=== PATIENT | female | born 1950 | race Caucasian/White ===

== ENCOUNTER → 2018-02-25 | Outpatient (REF) | payer MEDICARE ==
[2018-02-25 12:05] LABS: BASO % 0.3 % (0.0-1.0); EOS # 0.3 10^3/uL (0.0-0.50); EOS % 3.1 % (0.0-3.0); HEMOGLOBIN 14.2 g/dl (12.0-15.5); IMMATURE GRANULOCYTE % 0.2 % (0-3.0); LYMPH # 3.2 10^3/uL (1.5-4.5); LYMPH % 36.8 % (24.0-44.0); MEAN CORPUSCULAR HEMOGLOBIN 30.5 pg (27.0-33.0); MEAN CORPUSCULAR VOLUME 92.5 fl (80.0-96.0); MONO # 0.7 10^3/uL (0.0-0.8); NEUTROPHILS # 4.5 10^3/uL (1.8-7.7); NEUTROPHILS % 51.6 % (36.0-66.0); PLATELET COUNT, AUTOMATED 260 10^3/uL (150-450); RED BLOOD COUNT 4.65 10^6/uL (4.00-5.40); RED CELL DISTRIBUTION WIDTH 13.6 % (11.5-14.5); WHITE BLOOD COUNT 8.7 10^3/uL (4.0-10.0)
[2018-02-25 12:44] LABS: ALBUMIN/GLOBULIN RATIO 1.33 (1.00-1.93); ALKALINE PHOSPHATASE 87 U/L (45-117); ALT/SGPT 20 U/L (12-78); ANION GAP 5 MEQ/L (8-16); AST/SGOT 22 U/L (7-37); BILIRUBIN,TOTAL 0.3 MG/DL (0.2-1.0); BLOOD UREA NITROGEN 28 MG/DL (7-18); CALCIUM LEVEL 8.7 MG/DL (8.8-10.2); CARBON DIOXIDE LEVEL 28 MEQ/L (21-32); CHLORIDE LEVEL 111 MEQ/L (98-107); CHOLESTEROL LEVEL 147 MG/DL (<200); CHOLESTEROL RISK RATIO 2.625 (<5); CREATININE FOR GFR 0.83 MG/DL (0.55-1.30); FREE T4 0.98 NG/DL (0.76-1.46); GLOMERULAR FILTRATION RATE > 60.0 (>45); GLUCOSE, FASTING 85 MG/DL (70-100); HDL CHOLESTEROL 56 MG/DL (>40); LDL CHOLESTEROL 80.2 MG/DL (<100); NON-HDL-C 91 MG/DL; POTASSIUM SERUM 4.7 MEQ/L (3.5-5.1); SODIUM LEVEL 144 MEQ/L (136-145); TRIGLYCERIDES LEVEL 54 MG/DL (<150)
== END ==
LOC: M SFHCPLAZ 08:41
DX: Z00.00 Encounter for general adult medical examination without abnormal findings (principal); E78.5 Hyperlipidemia, unspecified; F41.9 Anxiety disorder, unspecified
CPT/HCPCS: 84443

== ENCOUNTER 2018-11-20 15:07 | Emergency (ER) | payer OTHER, MEDICARE ==
[~2018-11-20] VITALS: Ht 157.5 cm; Wt 59.1 kg
[2018-11-20] MEDS ORDERED: ROBA500T PO (17:08)
[2018-11-20] MEDS ORDERED: NAPR-50 PO (17:08)
[2018-11-20 17:11] VITALS: BP 123/79
== END 2018-11-20 17:14 | disposition home or self-care (01) ==
LOC: M ED 15:07
DX: S13.4XXA Sprain of ligaments of cervical spine, initial encounter (principal); M62.830 Muscle spasm of back; M26.629 Arthralgia of temporomandibular joint, unspecified side; V43.52XA Car driver injured in collision with other type car in traffic accident, initial encounter; Y92.410 Unspecified street and highway as the place of occurrence of the external cause; Z91.030 Bee allergy status; Z79.1 Long term (current) use of non-steroidal anti-inflammatories (NSAID)

== ENCOUNTER 2018-12-23 08:01 | Emergency (ER) | payer OTHER, MEDICARE ==
[~2018-12-23] VITALS: Ht 160 cm; Wt 61.4 kg
[~2018-12-23 08:01] MED LIST: NAPR-50 PO; ROBA500T PO
[2018-12-23] MEDS ORDERED: ATOR1TAB21 (08:13)
[2018-12-23] MEDS ORDERED: ACETAMINOPHEN 325 MG TAB PO ONE (08:15)
--- NOTE | 2018-12-23 09:33 | REP ---
Thoracic spine radiographs: Three views: History: Trauma. No comparison study. Findings: There is anterior wedge compression fracture deformity at the T12 vertebral body with approximately 25-30% loss of anterior vertebral body heights. There is some discogenic spurring. No cortical irregularity or buckling is seen and this may be a chronic finding. Pedicles and posterior elements are intact. No paravertebral soft-tissue mass is seen. There are degenerative disc changes in the mid and lower thoracic and upper lumbar levels. Thoracic vertebral body heights are otherwise preserved. No other finding. Impression: 25-30% wedge compression fracture deformity at T12, radiographically appears old although there are no prior studies. Degenerative spondylosis changes. Otherwise negative. Electronically Signed by Jaxon Larkin MD 12/23/2018 09:36 A
--- NOTE | 2018-12-23 09:36 | REP ---
Lumbar spine series: Five views: History: Trauma. Findings: Lumbar vertebral body heights are preserved. Alignment is normal. There is moderate degenerative disc disease at L2-3 with lesser discogenic changes at L1-2 and L3-4. Some vascular calcifications noted. No fracture or collapse is seen in the lumbar spine. Mild chronic appearing wedging at T12 again noted. There is mild facet hypertrophy bilaterally at L5-S1. Impression: Degenerative spondylosis changes. No acute traumatic lumbar spine finding. Electronically Signed by Jaxon Larkin MD 12/23/2018 10:58 A
--- NOTE | 2018-12-23 09:37 | REP ---
RIGHT FOOT, FOUR VIEWS: FOOT: There is no evidence of an acute fracture, dislocation or intrinsic bone disease. IMPRESSION: No fracture or dislocation. Electronically Signed by Niko Diane MD 12/23/2018 08:32 P
--- NOTE | 2018-12-23 09:37 | REP ---
LEFT ANKLE, FOUR VIEWS: ANKLE: There is no evidence of an acute fracture, dislocation or intrinsic bone disease. The ankle mortise is anatomic. IMPRESSION: No fracture or dislocation. Electronically Signed by Niko Diane MD 12/23/2018 08:32 P
--- NOTE | 2018-12-23 09:37 | REP ---
Left foot series: Four views. History: Trauma. Findings: Four views of the left foot show overall normal mineralization. There is mild spurring at the first MTP joint. There is no evidence of fracture. Achilles calcaneal spurring is also noted. Impression: Mild first MTP and Achilles calcaneal spurring. Otherwise negative. Electronically Signed by Jaxon Larkin MD 12/23/2018 10:59 A
--- NOTE | 2018-12-23 10:18 | REP ---
CT thoracic spine without contrast: History: Trauma. T12 compression. CT findings: CT images confirm the presence of a mild wedge compression deformity at the T12 vertebral body. There is degenerative disc spurring anteriorly and posteriorly at T11-12. There is no cortical disruption or buckling to suggest that this is an acute injury. No para vertebral soft tissue edema is seen. There is diffuse osteopenia. Thoracic vertebral body heights are otherwise preserved. No other compression or fracture is seen. Impression: No acute fracture seen. Old mild wedge compression fracture deformity at T12. Electronically Signed by Jaxon Larkin MD 12/23/2018 11:00 A
[2018-12-23 10:54] VITALS: BP 117/68
== END 2018-12-23 11:01 | disposition home or self-care (01) ==
LOC: EDBD 08:01 → M ED 08:01
DX: S93.409A Sprain of unspecified ligament of unspecified ankle, initial encounter (principal); S20.229A Contusion of unspecified back wall of thorax, initial encounter; W50.0XXA Accidental hit or strike by another person, initial encounter; Y92.89 Other specified places as the place of occurrence of the external cause; E78.9 Disorder of lipoprotein metabolism, unspecified; F33.9 Major depressive disorder, recurrent, unspecified; F41.9 Anxiety disorder, unspecified; Z91.030 Bee allergy status; F17.210 Nicotine dependence, cigarettes, uncomplicated

== ENCOUNTER → 2019-08-12 | Outpatient (REF) | payer MEDICARE ==
[~2019-08-12] MED LIST changes: +ATOR1TAB21; -NAPR-50 PO; +NAPR-837 PO
[2019-08-12 11:07] LABS: HEMATOCRIT 45.1 % (36.0-47.0); HEMOGLOBIN 14.5 g/dl (12.0-15.5); MEAN CORPUSCULAR HEMOGLOBIN 30.7 pg (27.0-33.0); MEAN CORPUSCULAR HGB CONC 32.2 g/dl (32.0-36.5); MEAN CORPUSCULAR VOLUME 95.6 fl (80.0-96.0); PLATELET COUNT, AUTOMATED 261 10^3/uL (150-450); RED BLOOD COUNT 4.72 10^6/uL (4.00-5.40)
[2019-08-12 11:33] LABS: ALBUMIN 3.2 GM/DL (3.2-5.2); ALT/SGPT 21 U/L (12-78); BILIRUBIN,TOTAL 0.4 MG/DL (0.2-1.0); BLOOD UREA NITROGEN 26 MG/DL (7-18); CALCIUM LEVEL 8.4 MG/DL (8.8-10.2); CARBON DIOXIDE LEVEL 28 MEQ/L (21-32); CHLORIDE LEVEL 110 MEQ/L (98-107); CHOLESTEROL LEVEL 129 MG/DL (<200); GLOMERULAR FILTRATION RATE > 60.0 (>39); GLUCOSE, FASTING 93 MG/DL (70-100); HDL CHOLESTEROL 43 MG/DL (>40); LDL CHOLESTEROL 68 MG/DL (<100); NON-HDL-C 86 MG/DL; POTASSIUM SERUM 4.5 MEQ/L (3.5-5.1); SODIUM LEVEL 142 MEQ/L (136-145); THYROID STIMULATING HORMONE 0.699 uIU/ML (0.358-3.740); TOTAL PROTEIN 6.3 GM/DL (6.4-8.2); TRIGLYCERIDES LEVEL 91 MG/DL (<150)
== END ==
LOC: M SFHCPLAZ 08:29
PROVIDERS: ATTEND Nurse Practitioner Family
DX: F32.9 Major depressive disorder, single episode, unspecified (principal); E78.5 Hyperlipidemia, unspecified

== ENCOUNTER → 2019-10-05 | Outpatient (CLI) | payer MEDICARE ==
--- NOTE | 2019-10-05 14:04 | REP ---
REASON FOR EXAM: Upper respiratory tract infection. There are no priors for comparison. There is a patchy opacity in the right middle lobe with slight right CP angle blunting. The heart is not enlarged and the osseous structures are within normal limits. IMPRESSION: Right middle lobe pneumonia and a small right pleural effusion. Electronically Signed by Heriberto Stevenson DO 10/05/2019 03:27 P
== END ==
LOC: M WUC 13:27
PROVIDERS: ATTEND Nurse Practitioner Family
DX: J18.9 Pneumonia, unspecified organism (principal)

== ENCOUNTER → 2019-11-19 | Outpatient (CLI) | payer MEDICARE ==
--- NOTE | 2019-11-19 15:15 | REP ---
CHEST, TWO VIEWS: Two views of the chest are performed and compared to prior study of 10/05/2019. There is an area of persistent consolidative opacity in the right middle lobe as seen on prior study, unchanged. No infiltrate is seen in the left lung. Heart is not enlarged. Mediastinal silhouette is unchanged. There is some tortuosity of the thoracic aorta. There are degenerative changes of the spine. IMPRESSION: Persistent consolidative opacity in the right middle lobe. Recommend CT of the chest with IV contrast to rule out underlying neoplasm. Electronically Signed by Niko Diane MD 11/19/2019 03:41 P
== END ==
LOC: M WUC 13:55
PROVIDERS: ATTEND Nurse Practitioner Family
DX: J18.9 Pneumonia, unspecified organism (principal)

== ENCOUNTER → 2019-11-24 | Outpatient (REF) | payer MEDICARE ==
[2019-11-24 17:48] LABS: BLOOD UREA NITROGEN 12 MG/DL (7-18); CALCIUM LEVEL 8.7 MG/DL (8.8-10.2); CARBON DIOXIDE LEVEL 31 MEQ/L (21-32); CHLORIDE LEVEL 111 MEQ/L (98-107); CREATININE FOR GFR 0.78 MG/DL (0.55-1.30); GLOMERULAR FILTRATION RATE > 60.0 (>39); GLUCOSE, FASTING 102 MG/DL (70-100); SODIUM LEVEL 145 MEQ/L (136-145)
== END ==
LOC: M SFHCPLAZ 15:50
PROVIDERS: ATTEND Nurse Practitioner Family
DX: R93.89 Abnormal findings on diagnostic imaging of other specified body structures (principal); Z13.21 Encounter for screening for nutritional disorder; Z79.899 Other long term (current) drug therapy

== ENCOUNTER → 2020-01-29 | Outpatient (CLI) | payer MEDICARE | LOC: M LABSMTC 12:12 | PROVIDERS: ATTEND Family Medicine | DX: Z11.59 Encounter for screening for other viral diseases (principal); Z20.828 Contact with and (suspected) exposure to other viral communicable diseases ==

== ENCOUNTER 2020-07-06 10:10 | Inpatient (IN) | payer MEDICARE ==
[~2020-07-06] VITALS: Ht 152.4 cm; Wt 51.7 kg
[2020-07-06] MEDS: MOM 30ML SUSPENSION UDC PO SCH (09:00)
[~2020-07-06 10:10] MED LIST changes: -ATOR1TAB21; +ATOR1TAB21 PO
[2020-07-06] MEDS ORDERED: ANOR1AER INH (10:28)
[2020-07-06] MEDS ORDERED: VITA50005 PO (10:28)
[2020-07-06] MEDS ORDERED: ATIV1TAB7 PO (10:28)
[2020-07-06] MEDS ORDERED: AMIT10TA PO (10:28)
[2020-07-06 11:11] LABS: HEMATOCRIT 37.5 % (36.0-47.0); HEMOGLOBIN 11.7 g/dl (12.0-15.5); MEAN CORPUSCULAR HGB CONC 31.2 g/dl (32.0-36.5); MEAN CORPUSCULAR VOLUME 89.7 fl (80.0-96.0); PLATELET COUNT, AUTOMATED 256 10^3/uL (150-450); RED BLOOD COUNT 4.18 10^6/uL (4.00-5.40); WHITE BLOOD COUNT 7.5 10^3/uL (4.0-10.0)
--- NOTE | 2020-07-06 11:16 | REPVR ---
PROCEDURE INFORMATION: Exam: XR Chest, 1 View Exam date and time: 07/06/2020 11:00 AM Age: 69 years old Clinical indication: Cough; Patient HX: HX of smoking, HX of pneumonia since aug 2019; Additional info: Malaise TECHNIQUE: Imaging protocol: XR of the chest Views: 1 view. COMPARISON: CR CHEST 2 VIEW 11/19/2019 2:06 PM FINDINGS: Lungs: The right lung is largely opacified, with atelectasis and potential underlying airspace disease and/or parenchymal pathology. The left lung is relatively clear. Pleural space: There is a large new right pleural effusion. The left costophrenic angle is sharp. No pneumothorax is identified. Heart/Mediastinum: Unremarkable. No cardiomegaly. Vasculature: The aorta is again tortuous. Bones/joints: Unremarkable. IMPRESSION: Large right pleural effusion, new since 11/19/19, with the right lung largely opacified, with atelectasis and potential underlying airspace disease and/or parenchymal pathology. Recommend close follow-up and/or CT. Electronically signed by: Cecil Galvan On 07/06/2020 11:16:09 AM
[2020-07-06 11:51] LABS: IONIZED CALCIUM 4.4 MG/DL (4.5-5.3)
[2020-07-06 11:53] LABS: ALBUMIN 2.5 GM/DL (3.2-5.2); ALT/SGPT 28 U/L (12-78); BILIRUBIN,DIRECT 0.6 MG/DL (0.0-0.2); BILIRUBIN,TOTAL 1.1 MG/DL (0.2-1.0); CK-MB VALUE MASS 2.5 NG/ML (<3.6); CPK CREATINE PHOSPHOKINASE 74 U/L (26-192); LIPASE 2166 U/L (73-393); MB/CK RELATIVE INDEX 3.38 (< OR =4); TOTAL PROTEIN 6.2 GM/DL (6.4-8.2); TROPONIN I < 0.02 NG/ML (< 0.10)
[2020-07-06 12:32] LABS: ATYPICAL LYMPH 9 % (0-5); LYMPHOCYTES 13 % (16-44); METAMYELOCYTES 1 % (0-0); MONOCYTES 1 % (0-5); MYELOCYTES 3 % (0-0); NEUTROPHILS 66 % (28-66); PLATELET ESTIMATE NORMAL (NORMAL)
[2020-07-06] MEDS ORDERED: ISOVUE-370 76% 100ML VIAL As Ordered ONE ×2 (12:32→12:40)
--- NOTE | 2020-07-06 13:37 | REPVR ---
PROCEDURE INFORMATION: Exam: CT Abdomen And Pelvis With Contrast Exam date and time: 07/06/2020 12:23 PM Age: 69 years old Clinical indication: Abdominal pain; Additional info: Pancreatitis/effusion/possible malignancy TECHNIQUE: Imaging protocol: Computed tomography of the abdomen and pelvis with intravenous contrast. Radiation optimization: All CT scans at this facility use at least one of these dose optimization techniques: automated exposure control; mA and/or kV adjustment per patient size (includes targeted exams where dose is matched to clinical indication); or iterative reconstruction. Contrast material: ISOVUE 370; Contrast volume: 100 ml; Contrast route: INTRAVENOUS (IV); COMPARISON: No relevant prior studies available. FINDINGS: Liver: There are multiple heterogeneous masses in the liver measuring up to 6.2 cm on the left and 5.7 cm on the right, most compatible with metastases. Gallbladder and bile ducts: No gallstones are evident, but ultrasound would be more sensitive. Pancreas: The pancreas appears to contain a somewhat ill-defined hypodense mass in the head measuring 2.2 x 2.4 x 1.3 cm. There is also heterogeneity of the pancreas more distally which could relate to additional masses or irregular dilatation of the pancreatic duct. Spleen: Normal. No splenomegaly. Small splenule noted. Adrenals: There is nodular and masslike thickening of the adrenal glands. Kidneys and ureters: Multiple bilateral renal cysts are present. There also indeterminate density lesions exophytic to the right kidney, measuring up to 2.8 cm in the upper pole and 1.4 cm in the lower pole. Some lobulated fluid partially surrounds the left kidney, measuring up to 13 mm in thickness, sparing the upper pole. Stomach and bowel: The unopacified small bowel is not significantly distended to suggest obstruction. There appears to be mild wall thickening of some distal small bowel loops. There appears to be mild wall thickening of portions of the transverse, descending and sigmoid colon, including apparent masslike wall thickening at the level of the splenic flexure. Appendix: The appendix is not identified, but there are no inflammatory changes in its expected region. Intraperitoneal space: There is no free air. Small free fluid is present about the abdomen and pelvis. There also multiple small soft tissue nodules along the peritoneum, particularly in the left upper quadrant, measuring up to 2.9 cm. Vasculature: The abdominal aorta is nonaneurysmal. Atherosclerotic vascular calcifications are noted. Lymph nodes: There are enlarged left periaortic, aortocaval and yessica hepatis lymph nodes, with short axis measurements of up to 1.5 cm, 1.4 cm and 1.1 cm, respectively. Bladder: Grossly unremarkable. Reproductive: There has been hysterectomy. No gross adnexal abnormality is apparent, but ultrasound would be more appropriate in this regard. Bones/joints: Degenerative changes involve the spine and hips. There is heterogeneous sclerosis involving the visualized skeleton, compatible with metastatic disease. Moderate compression of the T12 vertebral body is of indeterminate age. Soft tissues: See "Intraperitoneal space" finding. IMPRESSION: 1. Multiple hepatic masses measuring up to 6.2 cm, most compatible with metastases. 2. Appearance of an ill-defined hypodense mass in the pancreatic head measuring up to 2.4 cm, suspicious for neoplasm. This could be better characterized with MRI, as could heterogeneity of the pancreas more distally, which could relate to additional masses or irregular dilatation of the pancreatic duct. 3. Nodular masslike thickening of the adrenal glands, suggesting metastatic disease. 4. Indeterminate right renal lesions measuring up to 2.8 cm, with malignancy not excluded. These would also be better evaluated with MRI. 5. Lobulated fluid partially surrounding the left kidney, could relate to prior trauma or infection. 6. Apparent masslike wall thickening of the large bowel at the level of the splenic flexure, could be a site of neoplasm as well. 7. Apparent mild wall thickening of some distal small bowel loops and portions of the transverse, descending and sigmoid colon elsewhere, suggesting a nonspecific enterocolitis. 8. Small free fluid about the abdomen and pelvis, with multiple small soft tissue nodules along the peritoneum, suspicious for carcinomatosis. 9. Lymphadenopathy as described. 10. Heterogeneous sclerosis involving the visualized skeleton, compatible with metastatic disease. 11. Moderate, age-indeterminate compression of the T12 vertebral body. COMMENTS: Dedicated chest CT has been performed, and findings above the diaphragm will be reported separately. Electronically signed by: Cecil Galvan On 07/06/2020 13:37:33 PM
--- NOTE | 2020-07-06 13:42 | REPVR ---
PROCEDURE INFORMATION: Exam: CT Angiography Chest With Contrast Exam date and time: 07/06/2020 12:28 PM Age: 69 years old Clinical indication: Chest pain; Additional info: Pancreatitis/effusion/possible malignancy/pe TECHNIQUE: Imaging protocol: Computed tomographic angiography of the chest with intravenous contrast. 3D rendering (Not supervised by radiologist): MIP and/or 3D reconstructed images were created by the technologist. Radiation optimization: All CT scans at this facility use at least one of these dose optimization techniques: automated exposure control; mA and/or kV adjustment per patient size (includes targeted exams where dose is matched to clinical indication); or iterative reconstruction. Contrast material: ISOVUE 370; Contrast volume: 100 ml; Contrast route: INTRAVENOUS (IV); COMPARISON: CR PORTABLE CHEST X-RAY 07/06/2020 10:52 AM FINDINGS: Pulmonary arteries: No pulmonary embolus is identified. Aorta: The thoracic aorta is nonaneurysmal. Lungs: The lungs demonstrate mild centrilobular emphysematous disease. The left demonstrates mild dependent atelectasis. There is a 6 mm pleural based nodule in the left lower lobe (image [id number]). The right lung is largely collapsed and consolidated, with some aeration of the right upper lobe, but complete opacification of the right middle and lower lobes. Pleural space: There are large right and very small left pleural effusions. No pneumothorax. Heart: Unremarkable. No cardiomegaly. No pericardial effusion. Lymph nodes: There is confluent soft tissue density in the mediastinum, including in the pretracheal and subcarinal regions, extending into the bilateral silverio, could represent confluent lymphadenopathy. This narrows the pulmonary arteries and obliterates the lumen of the pulmonary veins in the right hilum. The right mainstem bronchus is occluded with some soft tissue density within it. Bones/joints: Heterogeneous sclerosis involves the visualized skeleton, compatible with metastatic disease. Soft tissues: See "Lymph nodes" finding. IMPRESSION: 1. Large right and very small left pleural effusions. 2. Confluent soft tissue density in the mediastinum extending into the bilateral hilar with the right mainstem bronchus occluded and containing soft tissue density. This could represent primary or metastatic disease. 3. Right lung largely collapsed and consolidated with some aeration of the upper lobe and complete opacification of the middle and lower lobes. 4. 6 mm left lower lobe nodule nodule. Fleischner follow up recommendations for incidental nodules are not indicated. Follow up per patient's medical condition. 5. Diffuse osseous metastatic disease. COMMENTS: 1. See separate abdominal CT report for findings below the diaphragm. 2. THIS REPORT CONTAINS FINDINGS THAT MAY BE CRITICAL TO PATIENT CARE. The findings were verbally communicated via telephone conference with MADDIE Avalos at 1:39 PM EDT on 07/06/2020. The findings were acknowledged and understood. Electronically signed by: Cecil Galvan On 07/06/2020 13:41:37 PM
[2020-07-06] MEDS ORDERED: KCL 20MEQ IN D5/NS 1000ML 1,000 ML IV SCH (14:06)
[2020-07-06] MEDS ORDERED: LEVALBUTEROL 1.25 MG/0.5 ML CONCENTRATE NEB NEB PRN (14:15)
[2020-07-06] MEDS ORDERED: BISACODYL 10 MG SUPP PR PRN (14:15)
[2020-07-06] MEDS ORDERED: ACETAMINOPHEN TAB 650MG DOSE (2X325MG) PO PRN (14:15)
[2020-07-06] MEDS ORDERED: flumazeniL 0.5 MG/5 ML VIAL As Ordered ONE (14:31)
[2020-07-06] MEDS ORDERED: MIDAZOLAM INJ 2MG/2ML VIAL (J2250 PER 1MG) As Ordered ONE ×2 (14:31→14:32)
[2020-07-06] MEDS ORDERED: LIDOCAINE 1% MDV 20ML VIAL As Ordered ONE (14:32)
--- NOTE | 2020-07-06 14:51 | HPEPDOC ---
[facility] Medical History & Physical Date of Admission Jul 06, 2020 Date of Service: Jul 06, 2020 History and Physical CHIEF COMPLAINT: shortness of breath, gait dysfunction HISTORY OF PRESENT ILLNESS: 69 yo female for shortness of breath, difficulty with gait, weakness and malaise. Also noted 40 pound unintentional weight loss. Time frame not clear for her symptoms. Patient is a poor historian. Found to have large right pleural effusion. States she is 'very healthy' otherwise. Acknowledges her PCP, but states she does not follow regularly. She expresses concerns for her dogs, and is hoping to be discharged soon. Denies chest pain, abdominal pain, N/V/D, headaches. PAST MEDICAL HISTORY: #HLD #anxiety/depression #basal cell carcinoma #pancreatic mass ALLERGIES: Please see below. REVIEW OF SYSTEMS: Negative except as per HPI. HOME MEDICATIONS: Please see below. PHYSICAL EXAMINATION: VITAL SIGNS: See below GENERAL APPEARANCE: NAD, elderly, cachectic, frail HEENT: NC/AT CARDIOVASCULAR: +S1S2, RRR Lungs: diminished breath sounds ABDOMEN: soft, NT, +BS EXTREMITIES: no edema PSYCHIATRIC: alert, awake, oriented to person LABORATORY DATA: See below. MICROBIOLOGY: Please see below. A/P: 69 yo female with PMHx as indicated, admitted for large right pleural effusion, concern for malignancy. #right pleural effusion - d/w dr whiting - plan for chest tube - assistance appreciated #AMS - baseline dementia #pancreatic mass as per CT - consider MRCP #HLD #anxiety/depression #DVT prophylaxis Dispo: poor prognosis given widely metastatic disease, chest tube for drainage of pleural effusion, possible rad/onc for RT. Vital Signs Vital Signs Date Time Temp Pulse Resp B/P (MAP) Pulse Ox O2 Delivery O2 Flow Rate FiO2 07/06/20 14:36 98.4 108 20 137/60 (85) 93 Room Air Laboratory Data Labs 24H Laboratory Tests 2 07/06/20 10:39: Immature Granulocyte % (Auto) , Neutrophils (%) (Auto) , Nucleated Red Blood Cells % (auto) 6.1H, Neutrophils 66, Band Neutrophils 7, Lymphocytes (Manual) 13L, Monocytes (Manual) 1, Metamyelocytes 1H, Myelocytes 3H, Atypical Lymphocytes 9H, Platelet Estimate NORMAL, Lactic Acid Level 3.3*H, Total Bilirubin 1.1H, Direct Bilirubin 0.6H, Aspartate Amino Transf (AST/SGOT) 56H, Alanine Aminotransferase (ALT/SGPT) 28, Alkaline Phosphatase 220H, Total Creatine Kinase 74, Creatine Kinase MB 2.5, Creatine Kinase MB Relative Index 3.38, Troponin I < 0.02, Total Protein 6.2L, Albumin 2.5L, Albumin/Globulin Ratio 0.7L, Lipase 2166H, Thyroid Stimulating Hormone (TSH) 1.790 07/06/20 10:46: POC Glucose (Misc Panel) 125H, POC Sodium (Misc Panel) 143, POC Potassium (Misc Panel) 3.8, POC Chloride (Misc Panel) 102, POC Total CO2 (Misc Panel) 26.0, POC Blood Urea Nitrogen (Misc Panel 37H, POC Ionized Calcium (Misc Panel) 4.4L, POC Creatinine (Misc Panel) 0.8, POC Hematocrit (Misc Panel) 37.0L 07/06/20 11:06: Osmolality 312H, Whole Blood Ionized Calcium 4.4L CBC/BMP Laboratory Tests 07/06/20 10:39 Microbiology Microbiology 07/06/20 Blood Culture, Received Pending 07/06/20 Blood Culture, Received Pending Home Medications Scheduled Amitriptyline HCl (Amitriptyline HCl) 10 Mg Tablet, 10 MG PO QHS RECEIVES FROM [facility] PER PT, CAN'T VERIFY Atorvastatin Calcium (Atorvastatin Calcium) 20 Mg Tab, 20 MG PO DAILY Ergocalciferol (Vitamin D2) (Vitamin D2) 50,000 Units Cap, 50,000 UNITS PO QWEEK Umeclidinium Brm/Vilanterol Tr (Anoro Ellipta 62.5-25 Mcg INH) 1 Each Blst.w.dev, 1 PUFF INH DAILY Scheduled PRN Lorazepam (Ativan) 1 Mg Tablet, 1 MG PO QID PRN for ANXIETY RECEIVES FROM [facility] PER PT, CAN'T VERIFY Allergies Coded Allergies: bee venom protein (honey bee) (Verified Allergy, Intermediate, HIVES, 07/06/20) A-FIB/CHADSVASC A-FIB History Current/History of A-Fib/PAF?: No JARED BLEVINS MD Jul 06, 2020 14:51
[2020-07-06] MEDS ORDERED: MIDAZOLAM INJ 2MG/2ML VIAL (J2250 PER 1MG) IV ONE ×2 (15:20→15:28)
[2020-07-06 15:26] LABS: ABG BASE EXCESS 1.4 (-2.0-2.0); ABG HCO3 26.2 MEQ/L (22.0-26.0); ABG PARTIAL PRESSURE O2 109.7 mmHg (75.0-100.0); ABG STANDARD HCO3 25.8 MEQ/L (22.0-26.0); ABG TOTAL CO2 27.5 MEQ/L (23.0-31.0); ABG pH (ARTERIAL) 7.413 UNITS (7.350-7.450)
[2020-07-06] MEDS ORDERED: LIDOCAINE 1% MDV 20ML VIAL SC ONE (15:26)
[2020-07-06 16:00] VITALS: BP 138/85
--- NOTE | 2020-07-06 16:07 | REPVR ---
PROCEDURE INFORMATION: Exam: XR Chest, 1 View Exam date and time: 07/06/2020 3:35 PM Age: 69 years old Clinical indication: Condition or disease; Other: Chest tube insertion TECHNIQUE: Imaging protocol: XR of the chest Views: 1 view. COMPARISON: CR PORTABLE CHEST X-RAY 07/06/2020 10:52 AM FINDINGS: Lungs: Progressive volume loss and airspace disease in the right lung. COPD and interstitial prominence. Pleural space: Interval insertion of right thoracostomy tube with improved right pleural effusion and trace pneumothorax. Heart/Mediastinum: No cardiomegaly. Bones/joints: Osteopenia and degenerative change. Soft tissues: Subcutaneous emphysema in the right chest wall. IMPRESSION: 1. Progressive volume loss and airspace disease in the right lung. 2. Interval insertion of right thoracostomy tube with improved right pleural effusion and trace pneumothorax. Electronically signed by: Freddy Franco On 07/06/2020 16:06:44 PM
[2020-07-06] MEDS: KETOROLAC 30 MG/ML 1ML VIAL IV SCH ×2 (16:11→22:38)
[2020-07-06 18:22] LABS: PREALBUMIN 13.4 MG/DL (20.0-40.0)
[2020-07-06 20:00] VITALS: BP 132/72
[2020-07-06] MEDS: PERCOCET 5MG/325MG TAB PO PRN (20:14)
[2020-07-06] MEDS: DOCUSATE SODIUM 100 MG CAP PO SCH (20:15)
[2020-07-06] MEDS: HEPARIN SOD (PORCINE) 5000UNITS/ML 1ML VIAL/SYRINGE SC SCH (20:15)
[2020-07-06] MEDS: LEVALBUTEROL 1.25 MG/0.5 ML CONCENTRATE NEB NEB SCH (20:17)
[2020-07-06 21:58] LABS: PH BODY FLUID 7.642 UNITS (NOT ESTABLISHED); SOURCE, BODY FLUID pH PLEURAL
[2020-07-06 22:20] LABS: AMYLASE, BODY FLUID 195 U/L (NOT ESTABLISHED); CHOLESTEROL, BODY FLUID < 50 MG/DL (NOT ESTABLISHED); LDH, BODY FLUID 759 U/L (NOT ESTABLISHED); SOURCE, BODY FLUID AMYLASE PLEURAL; SOURCE, BODY FLUID CHOL PLEURAL; SOURCE, BODY FLUID GLUCOSE PLEURAL; SOURCE, BODY FLUID LDH PLEURAL; SOURCE, BODY FLUID TRIG PLEURAL; TRIGLYCERIDE, BODY FLUID 29 MG/DL (NOT ESTABLISHED)
[2020-07-06 22:29] LABS: APPEARANCE, BODY FLUID CLOUDY (CLEAR); PLEURAL FL COLOR RED (COLORLESS); SOURCE, BODY FLUID PLEURAL
[2020-07-06 22:49] LABS: SOURCE, BODY FLUID ALBUMIN PLEURAL; SOURCE, BODY FLUID TOT PROTEIN PLEURAL
[2020-07-07] VITALS: BP 135/67
[2020-07-07] MEDS: LEVALBUTEROL 1.25 MG/0.5 ML CONCENTRATE NEB NEB SCH ×4 (01:34→20:00)
[2020-07-07] MEDS: KETOROLAC 30 MG/ML 1ML VIAL IV SCH ×4 (03:53→21:25)
[2020-07-07 04:00] VITALS: BP 141/72
[2020-07-07 04:47] LABS: HEMATOCRIT 33.2 % (36.0-47.0); HEMOGLOBIN 10.1 g/dl (12.0-15.5); MEAN CORPUSCULAR HEMOGLOBIN 27.4 pg (27.0-33.0); MEAN CORPUSCULAR HGB CONC 30.4 g/dl (32.0-36.5); MEAN CORPUSCULAR VOLUME 90.2 fl (80.0-96.0); PLATELET COUNT, AUTOMATED 231 10^3/uL (150-450); RED BLOOD COUNT 3.68 10^6/uL (4.00-5.40); WHITE BLOOD COUNT 6.4 10^3/uL (4.0-10.0)
[2020-07-07 05:12] LABS: BLOOD UREA NITROGEN 45 MG/DL (7-18); CALCIUM LEVEL 8.6 MG/DL (8.8-10.2); CARBON DIOXIDE LEVEL 30 MEQ/L (21-32); CHLORIDE LEVEL 107 MEQ/L (98-107); CREATININE FOR GFR 0.78 MG/DL (0.55-1.30); GLOMERULAR FILTRATION RATE > 60.0 (>39); GLUCOSE, FASTING 200 MG/DL (70-100); POTASSIUM SERUM 3.7 MEQ/L (3.5-5.1); SODIUM LEVEL 143 MEQ/L (136-145)
[2020-07-07 05:30] LABS: LYMPHOCYTES 16 % (16-44); METAMYELOCYTES 2 % (0-0); MONOCYTES 3 % (0-5); NEUTROPHILS 74 % (28-66)
[2020-07-07 05:31] LABS: ANISOCYTOSIS 2+; HYPOCHROMASIA 1+; PLATELET ESTIMATE NORMAL (NORMAL); POLYCHROMASIA 1+
[2020-07-07 05:54] LABS: ABG BASE EXCESS 2.1 (-2.0-2.0); ABG HCO3 28.5 MEQ/L (22.0-26.0); ABG O2 SATURATION 98.9 % (95.0-99.0); ABG PARTIAL PRESSURE CO2 53.4 mmHg (35.0-45.0); ABG PARTIAL PRESSURE O2 151.5 mmHg (75.0-100.0); ABG STANDARD HCO3 26.4 MEQ/L (22.0-26.0); ABG TOTAL CO2 30.1 MEQ/L (23.0-31.0); ABG pH (ARTERIAL) 7.345 UNITS (7.350-7.450)
[2020-07-07 08:00] VITALS: BP 127/70
--- NOTE | 2020-07-07 08:05 | CR ---
DATE OF CONSULTATION: 07/06/2020 The patient is seen at the request of Dr. Costa in the emergency room and Dr. Marcano of the hospitalist service for a large pleural effusion and shortness of breath. HISTORY OF PRESENT ILLNESS: Patient is a 69-year-old white female whose story starts last winter, when she began to experience increasing weakness. Over the period of time from last winter to now, she has lost 40 pounds of weight. Extreme weakness brought her into the emergency room today, when she was having trouble walking around her home and stumbling. She states that she has difficulty keeping food down, and that food just does not taste good to her. There is only occasional vomiting. Literally she does not complain of chest pain. She is becoming gradually short of breath over the last few weeks. She has cough, but it is nonproductive. There is no true dysphagia in that she is able to swallow food without getting stuck. There has been no fever, but she does have chills off and on all the time but not rigor. Notably, she does not complain of abdominal pain. PAST MEDICAL ILLNESSES: 1. Gastroesophageal reflux disease. 2. Anxiety and depression. SURGICAL HISTORY: 1. Hysterectomy. 2. Bilateral hand surgery and right knee surgery. HOME MEDICATIONS: - amitriptyline 10 mg every night - atorvastatin 20 mg daily - vitamin D2 50,000 units weekly - Ativan 1 mg four times a day as needed for anxiety - Anoro Ellipta 62.5-25 mcg inhaler one puff daily TRAVEL HISTORY: None outside [facility]. No foreign travel. EXPOSURES: She has a toy poodle at home. No cats or birds. 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 HABITS: Smoked half pack per day. Now down to two or three cigarettes a day. Only occasionally imbibes alcohol. No illicit drugs. FAMILY HISTORY: Not relevant to the acute situation. REVIEW OF SYSTEMS: CONSTITUTIONAL: See history of present illness (HPI). EYES: Has had cataract surgery without amaurosis fugax or diplopia or prior jaundice. NOSE: Without epistaxis. MOUTH: Has her own teeth. RESPIRATORY: See HPI. CARDIAC: See HPI. Denies prior myocardial infarctions. Now has occasional leg edema. No intermittent claudication, although with the weakness she has had difficulty getting around for the last few months. GASTROINTESTINAL: See HPI. With nausea and just occasional vomiting. No diarrhea or constipation. No melena or hematochezia. GENITOURINARY: Without dysuria or hematuria. Without prior renal stones. ENDOCRINE: Without diabetes, without thyroid disease. PSYCHIATRIC: With anxiety and depression without psychosis. PHYSICAL EXAMINATION: A well-developed, cachectic female in moderate distress with weakness and shortness of breath. VITAL SIGNS: Temperature is 98.4, pulse 108 in sinus rhythm, respiratory rate of 20 without the use of accessory muscles, 93% saturated on room air. EYES: Pupils equal, round, and reactive to light. Extraocular muscles intact. Sclerae anicteric. NOSE: Without deformity. MOUTH: Shows mucous membranes to be pink and moist. Lips and commissures without lesions or thrush. NECK: Supple. No jugular venous distention. No subcutaneous emphysema. Trachea is midline. There no lymphadenopathy or thyromegaly. HEAD: Normocephalic. LUNGS: Show markedly decreased breath sounds on the right side with a percussion note that is dull all throughout. Right side shows some scattered rhonchi, which cleared with coughing. Percussion note is full to the diaphragm on the right. CARDIAC: Without murmurs, clicks, gallops, or rubs. I cannot feel her point of maximal impulse (PMI). S1 and S2 are normal. ABDOMEN: Surprisingly soft, nontender. I do not feel any masses. Bowel sounds are positive. There is no costovertebral angle (CVA) tenderness or hepatomegaly. EXTREMITIES: No pretibial pedal edema. No calf tenderness. No differential swelling of the upper extremities. SKIN: Warm, dry, and perfused without cyanosis or mottling, including that of the nailbeds and knees. NEUROLOGIC: Shows II-XII intact. Normal gross motor, gross sensation intact. Gait is not tested. Psychiatric shows her to be awake, alert, with appropriate anxiety. INVESTIGATIONS: White count 7.5 with a hemoglobin and hematocrit of 11.7 and 37.5, respectively, and a platelet count of 256. Differential shows 66% neutrophils, 7% bands, 13% lymphocytes, 1% monocytes, 1% metamyelocytes, 3% myelocytes. Chemistries show normal electrolytes with a BUN and creatinine of 37 and 0.8. Her total bilirubin is 1.1 with an AST and ALT of 28 and 56, respectively. Troponin is less than 0.02. Albumin 2.5 with an ionized calcium of 4.4. CT of her chest done with angiographic protocol does not show a pulmonary embolus. She has a very large pleural effusion. There is a large mediastinal mass. Her bronchus intermedius is completely obstructed with postobstructive atelectasis. I suspect it is atelectasis rather than compression. There is a what looks to be an apical segment or an anterior segment of the right upper lobe bronchus open. The remainder is closed. There is no pericardial effusion. The mass extends throughout the mediastinum at the level of the mary. Her liver shows multiple hypodense mixed lesions. She has bilateral renal cysts, singular in nature. There is a mass at the head of the pancreas. She has a 6-7 mm nodule in the left lower lobe subpleurally. IMPRESSION: 1. Pleural effusion, probably malignant. 2. Pancreatic mass, probable pancreatic carcinoma. 3. Multiple liver masses, probably metastatic pancreatic carcinoma. 4. Mediastinal mass and right lung mass, probably metastatic. 5. Left lower lobe subpleural nodule, probably metastatic. 6. Anxiety and depression. 7. Gastroesophageal reflux disease. 8. Protein-calorie malnutrition. PLAN AND DISCUSSION: The first order of business is to drain her pleural effusion. I have a sinking feeling, however, that it is not going to help, as her bronchus is completely closed off. It should be noted that her blood gas prior to evacuating the pleural effusion showed a pH of 7.41, pCO2 of 42, and a pO2 of 109 on 2 liters nasal cannula. It should also be noted that her lactic acid is 3.3. Once draining the pleural effusion, we need to address the underlying cause, and I suspect it is going to be pancreatic carcinoma. The easiest biopsy to obtain would be from the liver lesions. With her severe left shift and immature forms and with lactic acid of 3.3, we have to consider her septic, most likely source being the postobstructive lung. [facility]
--- NOTE | 2020-07-07 08:19 | RO ---
DATE OF OPERATION: 07/06/2020 PREOPERATIVE DIAGNOSIS: Right pleural effusion, probably metastatic. POSTOPERATIVE DIAGNOSIS: Right pleural effusion, probably metastatic. SURGEON: Dante Stephenson MD PHYSICIAN CREDENTIALING SPECIALIST: PROCEDURE: Insertion of right lateral chest tube. ANESTHESIA: DESCRIPTION OF PROCEDURE: Under satisfactory moderate sedation achieved with 3 mg of Versed, the patient was prepped and draped in the usual sterile fashion. The skin and subcutaneous tissue, muscle and pleura were infiltrated in the approximate 6th intercostal space. Incision was made and a tunnel was created in the chest without difficulty. A #24 chest tube was placed without difficulty. It was secured with to the chest wall with #2 Tevdek suture. It drained 1300 cc of serosanguineous fluid. The tube was connected to the Pleur-evac. The patient tolerated the procedure well and chest x-ray is pending. [facility]
[2020-07-07] MEDS: MOM 30ML SUSPENSION UDC PO SCH ×2 (09:00→09:21)
[2020-07-07] MEDS: DOCUSATE SODIUM 100 MG CAP PO SCH ×3 (09:00→21:25)
[2020-07-07] MEDS: PERCOCET 5MG/325MG TAB PO PRN ×3 (09:17→21:26)
[2020-07-07] MEDS: HEPARIN SOD (PORCINE) 5000UNITS/ML 1ML VIAL/SYRINGE SC SCH (09:20)
[2020-07-07] MEDS: PANTOPRAZOLE 40MG TAB (PROTONIX) PO SCH (09:21)
[2020-07-07] MEDS: LIDOCAINE 5% (LIDODERM) PATCH TD SCH (11:00)
[2020-07-07 12:00] VITALS: BP 125/61
[2020-07-07] MEDS ORDERED: LIDOCAINE 1% MDV 20ML VIAL As Ordered ONE (15:40)
--- NOTE | 2020-07-07 17:11 | REPVR ---
PROCEDURE INFORMATION: Exam: XR Chest, 2 Views Exam date and time: 07/07/2020 8:11 AM Age: 69 years old Clinical indication: Condition or disease; Lung condition and disease; Pleural effusion; Other: Unknown TECHNIQUE: Imaging protocol: XR of the chest Views: 2 views. COMPARISON: CR PORTABLE CHEST X-RAY 07/06/2020 3:41 PM FINDINGS: Lungs: Thoracostomy tube demonstrated in the right lower lung zone. Right perihilar and right lower lobe infiltrate. Volume loss in the right hemithorax. Pleural space: Blunted right costophrenic angle consistent with pleural effusion. Heart/Mediastinum: Unremarkable. No cardiomegaly. Diaphragm: Elevated right hemidiaphragm. Bones/joints: Osteoporosis. IMPRESSION: 1. Right perihilar and right lower lobe infiltrate. 2. Blunted right costophrenic angle consistent with pleural effusion. Electronically signed by: Chris Andrade On 07/07/2020 17:10:49 PM
--- NOTE | 2020-07-07 18:21 | IPNPDOC ---
Subjective Date Seen The patient was seen on 07/07/20. Subjective Chief Complaint/HPI Ms. Cash is a 69 year old female here is dyspnea found to have exudative pleural effusion and abdominal masses. This morning, she was complaining of arm pain from when she fell. Otherwise denies fever, chest pain, abdominal pain, diarrhea, or dysuria. This morning, Dr. Stephenson (thoracic surgery), pulled the chest tube. He ordered the liver biopsy and recommended oncology to be on board to see if patient would be hospice appropriate. Oncology was consulted this afternoon Constitutional: Denies: Fever Pulmonary: Denies: Dyspnea Cardiovascular: Denies: Chest Pain Gastrointestinal: Denies: Abdominal Pain, Diarrhea Genitourinary: Denies: Dysuria Objective Physical Examination General Exam: Positive: Alert, Cooperative, No Acute Distress Eye Exam: Positive: EOMI; Negative: Sclera icteric ENT Exam: Positive: Atraumatic Neck Exam: Positive: Supple Chest Exam: Positive: Clear to auscultation Heart Exam: Positive: Rate Normal, Tachycardic Abdomen Exam: Positive: Normal bowel sounds Extremity Exam: Negative: Edema Neuro Exam: Positive: Normal Gait, Normal Speech Psych Exam: Positive: Anxiety Assessment /Plan Assessment Ms. Cash is a 69 year old female here with exudative pleural effusions and multiple masses in the abdomen. Today, Dr. Stephenson removed the chest tube. Will have oncology onboard to evaluate patient's condition Plan/VTE VTE Prophylaxis Ordered?: Yes Plan 1. Right pleural effusion - Exudative in nature - Chest tube removed - Thoracic surgery following, recommendations appreciated 2. Masses in the abdomen - CT of the abd/pelvis demonstrated multiple masses in the liver, pancreas, and kidney - Pending liver biopsy results - Oncology consulted, recommendations appreciated 3. Right arm pain - Had a fall a few weeks ago, declined further imaging - Will add on lidocaine patch to pain regimen. 4. GERD - Continue pantoprazole 5. DVT ppx - subq heparin, on hold for liver biopsy VS, I&O, 24H, Fishbone Vital Signs/I&O Vital Signs Date Time Temp Pulse Resp B/P (MAP) Pulse Ox O2 Delivery O2 Flow Rate FiO2 07/07/20 17:25 16 07/07/20 16:32 72 97 Nasal Cannula 2 07/07/20 16:00 97.8 07/07/20 12:00 125/61 (82) I&O- Last 24 Hours up to 6 AM 07/07/20 06:00 Intake Total 930 ml Output Total 349 ml Balance 581 ml Laboratory Data 24H LABS Laboratory Tests 2 07/07/20 04:16: Neutrophils (%) (Auto) , Nucleated Red Blood Cells % (auto) 4.7H, Neutrophils 74H, Band Neutrophils 5, Lymphocytes (Manual) 16, Monocytes (Manual) 3, Metamyelocytes 2H, Polychromasia 1+, Hypochromasia 1+, Basophilic Stippling 1+, Anisocytosis 2+, Platelet Estimate NORMAL, Anion Gap 6L, Glomerular Filtration Rate > 60.0, Calcium Level 8.6L 07/07/20 05:44: Blood Gas Bicarbonate Standard 26.4H, Arterial Blood pH 7.345L, Arterial Blood Partial Pressure CO2 53.4H, Arterial Blood Partial Pressure O2 151.5H, Arterial Blood Total CO2 30.1, Arterial Blood HCO3 28.5H, Arterial Blood Base Excess 2.1H, Arterial Blood Oxygen Saturation 98.9 CBC/BMP Laboratory Tests 07/07/20 04:16 Microbiology Microbiology 07/06/20 Acid Fast Stain, Received Pending 07/06/20 Mycobacterial Culture, Received Pending 07/06/20 Fungal Smear, Received Pending 07/06/20 Fungal Culture, Received Pending 07/06/20 Gram Stain - Final, Resulted 07/06/20 Anaerobic Culture, Resulted Pending 07/06/20 Body Fluid Culture, Received Pending 07/06/20 Blood Culture - Preliminary, Resulted No growth after 24 hours . All specim... 07/06/20 Blood Culture - Preliminary, Resulted No growth after 24 hours . All specim... JAMAL STEELE DO Jul 07, 2020 18:21
[2020-07-07 20:00] VITALS: BP 123/63
[2020-07-07] MEDS: **NOTE PATIENT COMMENT** MISC XX SCH (21:26)
[2020-07-08] VITALS: BP 117/68
[2020-07-08] MEDS: LEVALBUTEROL 1.25 MG/0.5 ML CONCENTRATE NEB NEB SCH ×4 (00:02→20:00)
[2020-07-08] MEDS: KETOROLAC 30 MG/ML 1ML VIAL IV SCH ×4 (03:09→21:01)
[2020-07-08] MEDS: PERCOCET 5MG/325MG TAB PO PRN ×3 (03:10→17:54)
[2020-07-08 04:00] VITALS: BP 128/77
[2020-07-08 05:30] LABS: HEMATOCRIT 33.5 % (36.0-47.0); HEMOGLOBIN 10.2 g/dl (12.0-15.5); MEAN CORPUSCULAR HEMOGLOBIN 27.4 pg (27.0-33.0); MEAN CORPUSCULAR HGB CONC 30.4 g/dl (32.0-36.5); MEAN CORPUSCULAR VOLUME 90.1 fl (80.0-96.0); PLATELET COUNT, AUTOMATED 231 10^3/uL (150-450); RED BLOOD COUNT 3.72 10^6/uL (4.00-5.40); WHITE BLOOD COUNT 6.5 10^3/uL (4.0-10.0)
[2020-07-08 05:49] LABS: BLOOD UREA NITROGEN 47 MG/DL (7-18); CALCIUM LEVEL 8.5 MG/DL (8.8-10.2); CARBON DIOXIDE LEVEL 30 MEQ/L (21-32); CHLORIDE LEVEL 110 MEQ/L (98-107); CREATININE FOR GFR 0.65 MG/DL (0.55-1.30); GLOMERULAR FILTRATION RATE > 60.0 (>39); GLUCOSE, FASTING 108 MG/DL (70-100); POTASSIUM SERUM 4.7 MEQ/L (3.5-5.1); SODIUM LEVEL 146 MEQ/L (136-145)
[2020-07-08 06:49] LABS: LYMPHOCYTES 19 % (16-44); METAMYELOCYTES 2 % (0-0); MONOCYTES 1 % (0-5); MYELOCYTES 3 % (0-0); NEUTROPHILS 68 % (28-66)
[2020-07-08 06:50] LABS: ANISOCYTOSIS 1+; PLATELET ESTIMATE NORMAL (NORMAL); POLYCHROMASIA 1+
[2020-07-08] MEDS: ONDANSETRON 4MG/2ML VIAL IV PRN ×2 (07:57→15:26)
[2020-07-08] MEDS: MOM 30ML SUSPENSION UDC PO SCH (07:59)
[2020-07-08] MEDS: DOCUSATE SODIUM 100 MG CAP PO SCH ×2 (07:59→20:48)
[2020-07-08 08:00] VITALS: BP 116/66
[2020-07-08] MEDS ORDERED: hydrOXYzine 25 MG TAB PO PRN (08:15)
[2020-07-08] MEDS: LIDOCAINE 5% (LIDODERM) PATCH TD SCH (08:57)
[2020-07-08] MEDS: PANTOPRAZOLE 40MG TAB (PROTONIX) PO SCH (08:58)
--- NOTE | 2020-07-08 09:12 | REPVR ---
PROCEDURE INFORMATION: Exam: XR Chest, 1 View Exam date and time: 07/08/2020 8:34 AM Age: 69 years old Clinical indication: Other: Pulled chest tube; Prior surgery; Additional info: Thoracic surgery, recently pulled chest tube TECHNIQUE: Imaging protocol: XR of the chest Views: 1 view. COMPARISON: CR Chest, 2 view PA, Lat 07/07/2020 7:59 AM FINDINGS: Tubes, catheters and devices: Interval removal of a right thoracotomy drainage tube. Lungs: Consolidation of underlying aerated portion of the upper right lung. Coarsening or thickening versus vascular congestion of the interstitium of the left lung. Pleural space: No pneumothorax. Heart/Mediastinum: Non delineation of the right heart border. Lower trachea and right hilar airways are deviated to the right chest. Diaphragm: The right hemidiaphragm position is not defined. Bones/joints: Osteopenia. IMPRESSION: 1. Interval removal of right chest tube. 2. Increasing consolidation of the right lung with significant volume loss and probably increasing volume of right-sided effusion. 3. Interstitial crowding, chronic thickening or component of vascular congestion left lung. Electronically signed by: Gay Suarez On 07/08/2020 09:11:49 AM
[2020-07-08] MEDS ORDERED: SLF 3 ML SYR IV PRN (11:00)
--- NOTE | 2020-07-08 11:12 | CR.PDOC ---
General Date of Consultation: Jul 08, 2020 Referring Provider: JAMAL STEELE DO Primary Care Physician: RAIZA UP NP Attending Physician: JAMAL STEELE DO Consultation REASON FOR CONSULTATION/CHIEF COMPLAINT: Suspected metastatic cancer. HISTORY OF PRESENT ILLNESS: Mrs. Karine Cash is a 69-year-old currently admitted for shortness of breath and failure to thrive. She gives a history of being sick since winter with cough, increasing shortness of breath and increasing generalized body weakness. She has also noted a 40 pound weight loss since winter. CT angiography 07/06/2020 showed a large right and a very small left pleural effusion. Soft tissue density in mediastinal extending into bilateral hilar and right mainstem bronchus, right lung collapse, 6 mm left lower lobe nodule and diffuse osseous metastatic disease. CT abdomen/pelvis 07/06/2020 showed multiple liver metastases, a pancreatic head mass, possible adrenal metastases, indeterminate right renal lesions, large bowel masslike wall thickening at the level of splenic flexure, soft tissue nodules along peritoneum suspicious for carcinomatosis, lymphadenopathy, and skeletal metastatic disease. She underwent insertion of right chest tube with drainage of 1300 cc serosanguineous fluid 07/06/2020. Pleural fluid cytology pending at this time. The chest tube was removed yesterday. She also underwent liver biopsy yesterday. Pathology report pending at this time. Medical oncology consulted for suspicion of metastatic cancer. ALLERGIES: Please see below. HOME MEDICATIONS: Please see below. PAST MEDICAL HISTORY: Hyperlipidemia. Allergic rhinitis. Skin cancer. PAST SURGICAL HISTORY: Hysterectomy and bilateral oophorectomy. Bowel obstruction surgery. Bilateral tendon surgery repair on hands. Appendectomy. Cataract surgery. FAMILY HISTORY: His father had bladder cancer. Paternal grandmother had colon cancer. SOCIAL HISTORY: Single. Has 2 adult children in [place] with whom she has not had contact for the past 30 years. Active smoker for the past 50 years. Drinks alcohol socially. REVIEW OF SYSTEMS: CONSTITUTIONAL: No fevers, but feels warm most of the time. Reports 40 pound weight loss, fatigue, generalized weakness. CARDIOVASCULAR: Reports chest pain. RESPIRATORY: Reports cough and shortness of breath. GASTROINTESTINAL: Reports diarrhea. NEUROLOGICAL: Reports dizziness. Rest of 14 point review of systems negative. Physical examination: General: Lying in bed, not in respiratory distress, communicative. HEENT: Pinkish conjunctiva, anicteric sclerae, moist oral mucosa. Atraumatic, normocephalic. RESPIRATORY: Fair air entry. Decreased breath sounds on right side. Occasional rhonchi. No wheezing. CARDIOVASCULAR: S1, S2 regular. No murmur. No gallop. ABDOMEN: Soft, positive bowel sounds, no guarding. EXTREMITIES: No cyanosis, no pedal edema. NEUROLOGICAL: Alert, moved extremity spontaneously. Answered questions appropriately. PSYCHIATRIC: Slightly belligerent. LABORATORY DATA: Please see below. ASSESSMENT/PLAN: 69-year-old with CT scans showing lung, liver, bone, scot, peritoneal, pancreatic, and adrenal lesions, and pleural effusion likely metastatic cancer with unknown primary. Pleural fluid cytology pending at this time. Liver biopsy results also pending. Ms. Cash currently has poor performance status. Discussed likely poor prognosis considering extent of metastatic disease and performance status. However, would need histological diagnosis to further determine prognosis and treatment options. Above was discussed with the patient. Also discussed the possibility of a hospice service referral. She wanted more time to think of going home versus going to hospice or going to a longterm. Recommend referral to palliative care service for pain and symptom management. Thank you for referring Ms. Radha Cash. Vital Signs/I&O Vital Signs Date Time Temp Pulse Resp B/P (MAP) Pulse Ox O2 Delivery O2 Flow Rate FiO2 07/08/20 08:00 2.0 07/08/20 08:00 97.2 105 16 116/66 (83) 94 Nasal Cannula I&O- Last 24 Hours up to 6 AM 07/08/20 06:00 Intake Total 118 ml Output Total 340 ml Balance -222 ml Laboratory Data Labs 24H Laboratory Tests 2 07/08/20 04:50: Immature Granulocyte % (Auto) , Neutrophils (%) (Auto) , Nucleated Red Blood Cells % (auto) 5.4H, Neutrophils 68H, Band Neutrophils 7, Lymphocytes (Manual) 19, Monocytes (Manual) 1, Metamyelocytes 2H, Myelocytes 3H, Polychromasia 1+, Basophilic Stippling 1+, Anisocytosis 1+, Platelet Estimate NORMAL, Anion Gap 6L, Glomerular Filtration Rate > 60.0, Calcium Level 8.5L CBC/BMP Laboratory Tests 07/08/20 04:50 Microbiology Microbiology 07/06/20 Acid Fast Stain, Received Pending 07/06/20 Mycobacterial Culture, Received Pending 07/06/20 Fungal Smear, Received Pending 07/06/20 Fungal Culture, Received Pending 07/06/20 Gram Stain - Final, Complete 07/06/20 Anaerobic Culture - Final, Complete 07/06/20 Body Fluid Culture - Final, Complete 07/06/20 Blood Culture - Preliminary, Resulted No growth after 24 hours . All specim... 07/06/20 Blood Culture - Preliminary, Resulted No growth after 24 hours . All specim... Allergies Coded Allergies: bee venom protein (honey bee) (Verified Allergy, Intermediate, HIVES, 07/06/20) Home Medications Scheduled Amitriptyline HCl (Amitriptyline HCl) 10 Mg Tablet, 10 MG PO QHS, (Reported) RECEIVES FROM [facility] PER PT, CAN'T VERIFY Atorvastatin Calcium (Atorvastatin Calcium) 20 Mg Tab, 20 MG PO DAILY, (Reported) Ergocalciferol (Vitamin D2) (Vitamin D2) 50,000 Units Cap, 50,000 UNITS PO QWEEK, (Reported) Umeclidinium Brm/Vilanterol Tr (Anoro Ellipta 62.5-25 Mcg INH) 1 Each Blst.w.d ev, 1 PUFF INH DAILY, (Reported) Scheduled PRN Lorazepam (Ativan) 1 Mg Tablet, 1 MG PO QID PRN for ANXIETY, (Reported) RECEIVES FROM [facility] PER PT, CAN'T VERIFY HIEU COWAN MD Jul 08, 2020 11:12
[2020-07-08 12:00] VITALS: BP_SYST 115; BP_SYST 137; BP_DIAS 58; BP_DIAS 70
[2020-07-08] MEDS ORDERED: FENTANYL REMOVAL DOCUMENTATION MISC TOP SCH (13:15)
[2020-07-08] MEDS: SLF 3 ML SYR IV SCH ×2 (14:00→22:00)
[2020-07-08] MEDS ORDERED: fentaNYL 25 MCG/HR PATCH TOP SCH (14:00)
[2020-07-08 16:00] VITALS: BP 137/70
--- NOTE | 2020-07-08 16:29 | ECGEPIP ---
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
[2020-07-08] MEDS ORDERED: PROMETHAZINE INJ 25 MG/ML VIAL (J2550) IV ONE (18:00)
--- NOTE | 2020-07-08 18:30 | IPNPDOC ---
Subjective Date Seen The patient was seen on 07/08/20. Subjective Chief Complaint/HPI Ms. Cash is a 69 year old female here is dyspnea found to have exudative pleural effusion and multiple abdominal masses. Today, patient was seen by oncology. Prognosis and therapy would be based off of the liver biopsy, but hospice would also be another possibility given the wide spread of metastatic disease and poor prognosis. She wanted more time to think about hospice. We reached out to hospice to speak with her over the weekend and they gave her options, but she was not ready to approach the topic. Later in the day, I spoke with her about the possibility of [employer], but she wanted more time to think about it. She is very anxious about the extent of disease and about her mortality. She is also worried about her dog. She was able to reach her mom. Her number is , and she talked with her. Unknown what conversation she had with her, but wanted to talk in private and control what information goes to her mom. Her mom lives in [place] Otherwise, she was given a fentanyl patch to control the pain. Unfortunately, this afternoon, she felt that the pain is still persistent and all over. She also feels nauseous. This morning Zofran was given for nausea and hydroxyzine was given for anxiety. She did not feel that it helped. Added on a one-time dose of Phenergan and increased her hydroxyzine. Otherwise most of her pain is in her right arm, although she states that she has pain all over. She reports nausea and anxiety. Denies fever or chills. Denies chest pain, denies abdominal pain. Denies diarrhea or dysuria Constitutional: Denies: Chills, Fever Cardiovascular: Denies: Chest Pain Gastrointestinal: Reports: Nausea, Abdominal Pain Genitourinary: Denies: Dysuria Musculoskeletal: Reports: Arm Pain (Right arm), Muscle Pain Objective Physical Examination General Exam: Positive: Alert, Cooperative, No Acute Distress Eye Exam: Positive: EOMI; Negative: Sclera icteric ENT Exam: Positive: Atraumatic Neck Exam: Positive: Supple Chest Exam: Positive: Clear to auscultation Heart Exam: Positive: Rate Normal, Tachycardic Abdomen Exam: Positive: Normal bowel sounds Extremity Exam: Negative: Edema Neuro Exam: Positive: Normal Gait, Normal Speech Psych Exam: Positive: Anxiety Assessment /Plan Assessment Ms. Cash is a 69 year old female here with exudative pleural effusions and multiple masses in the abdomen. Oncology is following. Liver biopsy is pending. Due to poor prognosis and widespread metastatic disease, introduced the idea of hospice. She would like more time to think about hospice. Plan/VTE VTE Prophylaxis Ordered?: Yes Plan 1. Right pleural effusion - Exudative in nature - Chest tube removed - Thoracic surgery following, recommendations appreciated 2. Masses in the abdomen - CT of the abd/pelvis demonstrated multiple masses in the liver, pancreas, and kidney - Pending liver biopsy results - Oncology consulted, recommendations appreciated - Ms. Cash is contemplating hospice. 3. Right arm pain - Had a fall a few weeks ago, declined further imaging - Will add on lidocaine patch to pain regimen. 4. Diffuse pain. May be secondary to widespread metastatic cancer. Fentanyl patch has been added to her pain regimen. 5. Anxiety. Secondary to her widespread disease and thoughts of mortality. Added hydroxyzine today. Cautious about benzos due to her respiratory state. 6. GERD - Continue pantoprazole 7. DVT ppx - subq heparin. Disposition: We'll need to contact hospice/palliative care on Friday VS, I&O, 24H, [facility] Vital Signs/I&O Vital Signs Date Time Temp Pulse Resp B/P (MAP) Pulse Ox O2 Delivery O2 Flow Rate FiO2 07/08/20 17:54 20 97 Nasal Cannula 2.0 07/08/20 16:00 97.0 108 137/70 (92) I&O- Last 24 Hours up to 6 AM 07/08/20 06:00 Intake Total 118 ml Output Total 340 ml Balance -222 ml Laboratory Data 24H LABS Laboratory Tests 2 07/08/20 04:50: Immature Granulocyte % (Auto) , Neutrophils (%) (Auto) , Nucleated Red Blood Cells % (auto) 5.4H, Neutrophils 68H, Band Neutrophils 7, Lymphocytes (Manual) 19, Monocytes (Manual) 1, Metamyelocytes 2H, Myelocytes 3H, Polychromasia 1+, Basophilic Stippling 1+, Anisocytosis 1+, Platelet Estimate NORMAL, Anion Gap 6L, Glomerular Filtration Rate > 60.0, Calcium Level 8.5L CBC/BMP Laboratory Tests 07/08/20 04:50 Microbiology Microbiology 07/06/20 Acid Fast Stain, Received Pending 07/06/20 Mycobacterial Culture, Received Pending 07/06/20 Fungal Smear, Received Pending 07/06/20 Fungal Culture, Received Pending 07/06/20 Gram Stain - Final, Complete 07/06/20 Anaerobic Culture - Final, Complete 07/06/20 Body Fluid Culture - Final, Complete 07/06/20 Blood Culture - Preliminary, Resulted No Growth after 48 hours. All Specime... 07/06/20 Blood Culture - Preliminary, Resulted No Growth after 48 hours. All Specime... JAMAL STEELE DO Jul 08, 2020 18:30
[2020-07-08 20:00] VITALS: BP 125/56
[2020-07-08] MEDS: hydrOXYzine 50 MG TAB PO PRN (20:45)
[2020-07-08] MEDS: NORCO, ANEXSIA 5/325MG TABLET (HYDROcodone/ACETAMINOPHEN) PO PRN (20:46)
[2020-07-08] MEDS: HEPARIN SOD (PORCINE) 5000UNITS/ML 1ML VIAL/SYRINGE SC SCH (20:47)
[2020-07-08] MEDS: **NOTE PATIENT COMMENT** MISC XX SCH (20:48)
[2020-07-09] VITALS: BP 110/64
[2020-07-09] MEDS: NORCO, ANEXSIA 5/325MG TABLET (HYDROcodone/ACETAMINOPHEN) PO PRN ×2 (00:50→08:47)
[2020-07-09] MEDS: ALPRAZolam 0.5 MG TAB PO PRN ×2 (01:18→08:45)
[2020-07-09] MEDS: ONDANSETRON 4MG/2ML VIAL IV PRN ×2 (01:31→08:45)
[2020-07-09] MEDS: LEVALBUTEROL 1.25 MG/0.5 ML CONCENTRATE NEB NEB SCH ×4 (01:35→19:54)
[2020-07-09 04:00] VITALS: BP 118/68
[2020-07-09] MEDS: KETOROLAC 30 MG/ML 1ML VIAL IV SCH ×4 (04:16→21:33)
[2020-07-09] MEDS: SLF 3 ML SYR IV SCH ×3 (04:26→21:53)
[2020-07-09] MEDS: hydrOXYzine 50 MG TAB PO PRN (05:48)
[2020-07-09 06:26] LABS: HEMATOCRIT 34.4 % (36.0-47.0); HEMOGLOBIN 10.3 g/dl (12.0-15.5); MEAN CORPUSCULAR HEMOGLOBIN 27.3 pg (27.0-33.0); MEAN CORPUSCULAR HGB CONC 29.9 g/dl (32.0-36.5); MEAN CORPUSCULAR VOLUME 91.2 fl (80.0-96.0); PLATELET COUNT, AUTOMATED 199 10^3/uL (150-450); RED BLOOD COUNT 3.77 10^6/uL (4.00-5.40); WHITE BLOOD COUNT 4.7 10^3/uL (4.0-10.0)
[2020-07-09 06:40] LABS: BLOOD UREA NITROGEN 59 MG/DL (7-18); CALCIUM LEVEL 8.4 MG/DL (8.8-10.2); CARBON DIOXIDE LEVEL 31 MEQ/L (21-32); CHLORIDE LEVEL 109 MEQ/L (98-107); GLOMERULAR FILTRATION RATE > 60.0 (>39); GLUCOSE, FASTING 107 MG/DL (70-100); POTASSIUM SERUM 5.3 MEQ/L (3.5-5.1); SODIUM LEVEL 144 MEQ/L (136-145)
[2020-07-09] MEDS: PERCOCET 5MG/325MG TAB PO PRN (06:48)
[2020-07-09] MEDS ORDERED: FUROSEMIDE 20MG/2ML VIAL (J1940) IV ONE (07:45)
[2020-07-09 07:47] LABS: EOSINOPHILS 2 % (0-3); LYMPHOCYTES 11 % (16-44); METAMYELOCYTES 3 % (0-0); MONOCYTES 5 % (0-5); MYELOCYTES 1 % (0-0); NEUTROPHILS 67 % (28-66)
[2020-07-09 07:48] LABS: PLATELET ESTIMATE NORMAL (NORMAL); TOXIC GRANULATION 1+
[2020-07-09 07:49] LABS: ANISOCYTOSIS 1+
[2020-07-09 08:00] VITALS: BP 128/71
[2020-07-09] MEDS: LIDOCAINE 5% (LIDODERM) PATCH TD SCH (08:44)
[2020-07-09] MEDS: DOCUSATE SODIUM 100 MG CAP PO SCH ×2 (08:45→21:32)
[2020-07-09] MEDS: MOM 30ML SUSPENSION UDC PO SCH (08:45)
[2020-07-09] MEDS: HEPARIN SOD (PORCINE) 5000UNITS/ML 1ML VIAL/SYRINGE SC SCH ×2 (08:45→21:32)
[2020-07-09] MEDS: PANTOPRAZOLE 40MG TAB (PROTONIX) PO SCH (08:45)
[2020-07-09] MEDS: MORPHINE 10MG/0.5ML ORAL CONCENTRATE SOLUTION U/D SL PRN ×2 (11:48→18:09)
[2020-07-09 12:00] VITALS: BP 128/63
[2020-07-09 15:00] LABS: BLOOD UREA NITROGEN 66 MG/DL (7-18); CALCIUM LEVEL 8.9 MG/DL (8.8-10.2); CARBON DIOXIDE LEVEL 32 MEQ/L (21-32); CHLORIDE LEVEL 107 MEQ/L (98-107); CREATININE FOR GFR 0.94 MG/DL (0.55-1.30); GLOMERULAR FILTRATION RATE > 60.0 (>39); GLUCOSE, FASTING 130 MG/DL (70-100); POTASSIUM SERUM 5.3 MEQ/L (3.5-5.1); SODIUM LEVEL 140 MEQ/L (136-145)
[2020-07-09 16:00] VITALS: BP_SYST 128; BP_SYST 62; BP_DIAS 62
--- NOTE | 2020-07-09 19:37 | IPNPDOC ---
Subjective Date Seen The patient was seen on 07/09/20. Subjective Chief Complaint/HPI Ms. Cash is a 69 year old female here is dyspnea found to have exudative pleural effusion and multiple abdominal masses. This morning, she was very anxious. She wanted to sign out AMA, because the medication takes to long to arrive. We spoke about the risks of going home and she decided to stay. She is anxious and has pain throughout. Pulmonary: Reports: Dyspnea Cardiovascular: Denies: Chest Pain Musculoskeletal: Reports: Arm Pain, Muscle Pain Psych: Reports: Anxiety Objective Physical Examination General Exam: Positive: Alert, Cooperative, No Acute Distress Eye Exam: Positive: EOMI; Negative: Sclera icteric ENT Exam: Positive: Atraumatic Neck Exam: Positive: Supple Chest Exam: Positive: Clear to auscultation Heart Exam: Positive: Rate Normal, Tachycardic Abdomen Exam: Positive: Normal bowel sounds Extremity Exam: Negative: Edema Neuro Exam: Positive: Normal Gait, Normal Speech Psych Exam: Positive: Anxiety Assessment /Plan Assessment Ms. Cash is a 69 year old female here with exudative pleural effusions and multiple masses in the abdomen. Oncology is following. Liver biopsy is pending. Due to poor prognosis and widespread metastatic disease, introduced the idea of hospice. She would like more time to think about [employer] and hospice Plan/VTE VTE Prophylaxis Ordered?: Yes Plan 1. Right pleural effusion - Exudative in nature - Chest tube removed - Thoracic surgery following, recommendations appreciated 2. Masses in the abdomen - CT of the abd/pelvis demonstrated multiple masses in the liver, pancreas, and kidney - Pending liver biopsy results - Oncology consulted, recommendations appreciated - Ms. Cash is contemplating hospice. 3. Right arm pain - Had a fall a few weeks ago, declined further imaging 4. Diffuse pain. May be secondary to widespread metastatic cancer. Liquid morphine added to her pain regimen 5. Anxiety. Secondary to her widespread disease and thoughts of mortality. Ativan for anxiety 6. GERD - Continue pantoprazole 7. DVT ppx - subq heparin. Disposition: We'll need to contact hospice/palliative care on Friday VS, I&O, 24H, [facility] Vital Signs/I&O Vital Signs Date Time Temp Pulse Resp B/P (MAP) Pulse Ox O2 Delivery O2 Flow Rate FiO2 07/09/20 18:44 16 07/09/20 16:00 2.0 07/09/20 16:00 97.5 101 128/62 (84) 97 Nasal Cannula I&O- Last 24 Hours up to 6 AM 07/09/20 06:00 Intake Total 1025 ml Output Total 600 ml Balance 425 ml Laboratory Data 24H LABS Laboratory Tests 2 07/09/20 05:38: Immature Granulocyte % (Auto) , Neutrophils (%) (Auto) , Nucleated Red Blood Cells % (auto) 11.2H, Neutrophils 67H, Band Neutrophils 11, Lymphocytes (Manual) 11L, Monocytes (Manual) 5, Eosinophils (Manual) 2, Metamyelocytes 3H, Myelocytes 1H, Anisocytosis 1+, Toxic Granulation 1+, Platelet Estimate NORMAL, Anion Gap 4L, Glomerular Filtration Rate > 60.0, Calcium Level 8.4L 07/09/20 14:06: Anion Gap 1L, Glomerular Filtration Rate > 60.0, Calcium Level 8.9 CBC/BMP Laboratory Tests 07/09/20 05:38 07/09/20 14:06 Microbiology Microbiology 07/06/20 Acid Fast Stain, Received Pending 07/06/20 Mycobacterial Culture, Received Pending 07/06/20 Fungal Smear, Received Pending 07/06/20 Fungal Culture, Received Pending 07/06/20 Gram Stain - Final, Complete 07/06/20 Anaerobic Culture - Final, Complete 07/06/20 Body Fluid Culture - Final, Complete 07/06/20 Blood Culture - Preliminary, Resulted No Growth after 72 hours. All specime... 07/06/20 Blood Culture - Preliminary, Resulted No Growth after 72 hours. All specime... JAMAL STEELE DO Jul 09, 2020 19:37
[2020-07-09 19:47] VITALS: BP 128/75
[2020-07-09] MEDS: **NOTE PATIENT COMMENT** MISC XX SCH (21:46)
[2020-07-10] VITALS: BP 130/72
[2020-07-10] MEDS: LEVALBUTEROL 1.25 MG/0.5 ML CONCENTRATE NEB NEB SCH ×4 (02:00→19:49)
[2020-07-10] MEDS: KETOROLAC 30 MG/ML 1ML VIAL IV SCH ×3 (03:19→17:16)
[2020-07-10] MEDS: ONDANSETRON 4MG/2ML VIAL IV PRN (03:19)
[2020-07-10 04:00] VITALS: BP 130/67
[2020-07-10 04:40] LABS: HEMATOCRIT 33.2 % (36.0-47.0); MEAN CORPUSCULAR HEMOGLOBIN 27.6 pg (27.0-33.0); MEAN CORPUSCULAR HGB CONC 30.1 g/dl (32.0-36.5); MEAN CORPUSCULAR VOLUME 91.7 fl (80.0-96.0); PLATELET COUNT, AUTOMATED 216 10^3/uL (150-450); RED BLOOD COUNT 3.62 10^6/uL (4.00-5.40); WHITE BLOOD COUNT 6.4 10^3/uL (4.0-10.0)
[2020-07-10 05:01] LABS: CALCIUM LEVEL 9.2 MG/DL (8.8-10.2); CREATININE FOR GFR 1.29 MG/DL (0.55-1.30); GLOMERULAR FILTRATION RATE 43.4 (>39); POTASSIUM SERUM 6.1 MEQ/L (3.5-5.1)
[2020-07-10 05:09] LABS: EOSINOPHILS 1 % (0-3); LYMPHOCYTES 15 % (16-44); METAMYELOCYTES 2 % (0-0); MONOCYTES 4 % (0-5); MYELOCYTES 6 % (0-0); NEUTROPHILS 69 % (28-66)
[2020-07-10 05:10] LABS: TOXIC GRANULATION 1+
[2020-07-10 05:11] LABS: ANISOCYTOSIS 2+; HYPOCHROMASIA 1+
[2020-07-10 05:12] LABS: PLATELET ESTIMATE NORMAL (NORMAL)
[2020-07-10] MEDS: SLF 3 ML SYR IV SCH ×3 (05:28→22:00)
[2020-07-10] MEDS ORDERED: SOD POLYSTYRENE SULFONATE SUSP 15 GM/60 ML UD PO ONE (06:30)
[2020-07-10 08:00] VITALS: BP 130/72
[2020-07-10] MEDS: HEPARIN SOD (PORCINE) 5000UNITS/ML 1ML VIAL/SYRINGE SC SCH ×2 (09:00→21:31)
[2020-07-10] MEDS: MOM 30ML SUSPENSION UDC PO SCH (09:00)
[2020-07-10] MEDS: PANTOPRAZOLE 40MG TAB (PROTONIX) PO SCH (09:00)
[2020-07-10] MEDS: DOCUSATE SODIUM 100 MG CAP PO SCH ×2 (09:00→21:31)
[2020-07-10] MEDS: LIDOCAINE 5% (LIDODERM) PATCH TD SCH (09:01)
--- NOTE | 2020-07-10 09:38 | REPVR ---
PROCEDURE INFORMATION: Exam: XR Chest, 1 View Exam date and time: 07/10/2020 9:06 AM Age: 69 years old Clinical indication: Other: Pleural effusion; Additional info: Plueral effusion TECHNIQUE: Imaging protocol: XR of the chest Views: 1 view. COMPARISON: CR PORTABLE CHEST X-RAY 07/08/2020 8:20 AM FINDINGS: Lungs: Near complete whiteout of the right hemithorax with right lung volume loss. Pleural space: Unremarkable. No pleural effusion. No pneumothorax. Heart/Mediastinum: Unremarkable. No cardiomegaly. Bones/joints: Osteopenia. IMPRESSION: Near complete whiteout of the right hemithorax with right lung volume loss. Electronically signed by: Morris Deal On 07/10/2020 09:38:26 AM
--- NOTE | 2020-07-10 09:47 | IPN ---
DATE: 07/07/2020 Ms. Cash says she can breathe a bit better after chest tube placement. She hurts all over in arms and legs. She is not complaining of abdominal pain, surprisingly. She does complain of continued generalized weakness. Her vital signs show a maximum temperature of 98.2 with a heart rate that ranges between 59-89 in sinus rhythm, respiratory rate of 16-22 without the use of accessory muscles, who is 89%-98% saturated on 2 liters nasal cannula, and whose blood pressure is ranging between 125/61 to 141/72. Her intake and output for the past 24 hours has been recorded as 430 in and 220 out. That does not count the chest tube drainage of 1300 mL yesterday. Overnight she has put out 259 mL from the chest tube and 90 mL since 12 o'clock this morning. She weighs 50.6 kg compared to 46.2 kg yesterday. PHYSICAL EXAMINATION: Her left side shows nearly normal vesicular sounds with occasional rhonchi, which cleared with coughing. Percussion note is full to the diaphragm on the left. Right side shows decreased breath sounds with E-to-A egophony but with a full percussion note. Abdomen is slightly distended but nontender. She is tympanitic with active bowel sounds. There is no hepatomegaly that I can feel, nor is there costovertebral angle (CVA) tenderness. Cardiac exam is without murmurs, clicks, gallops, or rubs. I cannot feel her point of maximal impulse (PMI). S1 and S2 are normal. Extremities show no pretibial edema, no calf tenderness. No differential swelling of the upper extremities. Skin is warm, dry, and perfused without cyanosis or mottling, including that of the nailbeds and knees. Neck is supple. There is no jugular venous distention. No subcutaneous emphysema. Trachea is midline. Mouth shows the mucous membranes to be pink and moist. Lips and commissures show no lesions or thrush. Eyes show her pupils to be equal and reactive. Extraocular muscles intact. Sclerae anicteric. Neurologic shows II-XII intact. Normal gross motor, gross sensation intact. Gait is not tested. Psychiatric shows her to be awake, alert, and oriented times three with appropriate mood and affect and conversational. Her white count today is 6.4 with a hemoglobin and hematocrit of 10.1 and 33.2. Platelet count is 231. Differential today shows 74% neutrophils, 5% bands, 16% lymphocytes, 3% monocytes, 2% metamyelocytes. There are no toxic granulations reported. Her electrolytes are essentially normal with a BUN and creatinine of 45 and 0.78, glucose of 200, and a calcium of 8.6. Her blood gases this morning show a pH of 7.34, pCO2 of 53, and pO2 of 151 on 2 liters nasal cannula. Base excess is 2.1. She is retaining a bit more than she was yesterday when her CO2 was 42. Her fluids has come back with a pH of 7.6 an LDH of 759, glucose 92 with a corresponding serum LDH of 1045. This then makes it exudative. She has 339 white cells, 87% of which are lymphocytes, an d 12% are neutrophils. This looks lymphocytic and probably malignant. Pathology is pending. Her chest x-ray today does not show her lung expanded. It is expected, as I did not think the lung would expand, as the bronchus intermedius is completely occluded with tumor. IMPRESSION: 1. Pleural effusion, malignant, drained with a chest tube. 2. Pancreatic mass, probably pancreatic carcinoma. 3. Multiple liver masses, probably metastatic pancreatic carcinoma. 4. Mediastinal mass and right lung mass, probably metastatic. 5. Left lower lobe subpleural nodule, again, metastatic. 6. Anxiety and depression. 7. Gastroesophageal reflux disease. PLAN AND DISCUSSION: There is no sense in keeping this chest tube in, as the lung does not re-expand, and the fluid is just going to come back. She did get some marginal relief with the chest tube as far as her breathing is concerned, and once the fluid returns I can put a PleurX catheter in. I will order a liver biopsy today. She very much wants to go home. Consideration her functional state, my instinct is that she will not tolerate chemotherapy, but oncology should be consulted. I think that she would best be served with early discharge with hospice care. I have discussed with her the fact that this, no doubt, is cancer and that her life expectancy is very short. In fact, she asked me "will I live to [place]," and while I could not give her a definitive answer, I told her I had my doubts, particularly if she is not a candidate for systemic therapy. She very much wants to get home to feed her dog. She has left a large bowl of food for her dog. Sadly, she says she does not have any friends, and her family is estranged, living in [place]. She also indicates that she needs to get her affairs in order, with which I agreed. TATO
--- NOTE | 2020-07-10 09:49 | IPN ---
DATE: 07/08/2020 SUBJECTIVE: Mrs. Cash is rather angry and annoyed. She maintains that she asked for Ensure 2 hours ago, the nursing staff says it was 20 minutes ago. She wants to go home and sign out AMA, and I have told her she could do that, but she has to be able to take care of herself. She does have the insight that she cannot take care of herself at home and she is not yet ambulating. She is in a really really depressed and frustrated state. Her liver biopsy and pleural fluid are still pending for a definitive diagnosis, although we also suspect that this is metastatic pancreatic cancer. She is not complaining of pain. She is breathing okay on 2 liters nasal cannula. Oncology has seen her this morning and really cannot make definitive recommendations as the pathology is not back, however, oncology does note that she has a very poor performance status and did discuss the possibility of hospice. My suspicion is that oncology is not going to offer her systemic therapy because of her functional status. PHYSICAL EXAMINATION: VITALS: T-max 97.2 with a heart rate that ranges between 69 and 105 and in sinus rhythm, respiratory rate 16 to 20 without the use of accessory muscles, who is 95 to 94% saturated on 2 liters nasal cannula. Blood pressure ranging between 128/77 to 116/66. INTAKE AND OUTPUT: Has been recorded as 568 in and 130 out for a positivity of 438 cc. Chest tube was removed yesterday after putting out 130 cc. She weighs 51 kilos today, 50.6 kilos yesterday. EYES: Pupils equal and reactive. Extraocular muscles intact. Sclerae anicteric. MOUTH: Shows mucous membranes to be pink and moist. Lips and commissures without lesions or thrush. NECK: Supple. No jugular venous distention. No subcutaneous emphysema. Trachea is midline. LUNGS: Scattered rhonchi in her left lung. Her right lung shows decreased breath sounds, now at a dull percussion note. It is difficult to examine her as she does not want to sit up. CARDIAC: Exam without murmurs, clicks, rubs or gallops. I cannot feel her PMI. S1, S2 are normal. ABDOMEN: Soft, nontender, bowel sounds positive. EXTREMITIES: Show no pretibial edema, no calf tenderness. No differential swelling of the upper extremities. SKIN: Warm, dry and perfused, without cyanosis or mottling, including that of the nailbeds and knees. NEUROLOGIC: Shows II-XII intact. Normal gross motor, gross sensation intact. Gait is not tested. PSYCHIATRIC: Shows her to be awake and alert, with a frustrated and depressed affect. LABORATORY DATA: White count today 6.5 with hemoglobin and hematocrit 10.2 and 33.5, platelet count 231,000. Differential shows 68% neutrophils, 7% bands, 19% lymphocytes and 1% monocytes. She has 2 metamyelocytes and 3 myelocytes. There are no toxic granulations reported. Electrolytes show sodium 146 with BUN and creatinine 47 and 0.65; essentially unchanged from yesterday with glucose 108 and calcium 8.5. IMAGING STUDIES: Her chest x-ray was done portably as she would not go down for a PA and lateral, shows increased opacification of the right chest. IMPRESSION: 1. Metastatic carcinoma; probably pancreatic to liver, lung and bone. 2. Pleural effusion; probably malignant. 3. Anxiety and depression. 4. Gastroesophageal reflux disease. 5. Protein calorie malnutrition. PLAN/DISCUSSION: This is a very sad situation in that she has no support whatsoever. As I noted yesterday, she is estranged from her daughters, who live in [place], and she is no longer associated with her former ; being . She lives alone and she cannot turn to the neighbors. She does have a dog at home, which has been left alone for the last three days since she has been in the hospital. She very much wishes to go home and I have indicated to her that while we cannot condone that, she can sign out AMA if she could ambulate and take care of herself at home. She realizes, however, that is not a possibility. We did talk about hospice and she is going to consider that. I have asked for hospice to see her today to discuss her hospice options. I do think all things considered she is beyond palliative care and her life expectancy is very limited. I will let the fluid reaccumulate. If she becomes short of breath with the fluid compressing what little lung she has left open, we can at some point in time place a PleurX catheter. [facility]ITALTalya
--- NOTE | 2020-07-10 09:53 | IPN ---
DATE: 07/09/2020 SUBJECTIVE: Mrs. Cash complains of pain all over, but again particularly in her arms. She does seem to be breathing better, but she is oxygen dependent. She has absolutely no support at home and no family. She was able to get her contractor to take care of her dog. It is a very sad situation in that she is even asking for an order for someone to sit with her and talk to her. PHYSICAL EXAMINATION: VITALS: T-max 98.8 with a heart rate that ranges between 103 and 101 and is sinus rhythm, respiratory rate of 16 to 18 without the use of accessory muscles, who is 94 to 97% saturated on 2 liters nasal cannula. Blood pressure ranging between 110/64 to 118/68. INTAKE AND OUTPUT: Over the past 24 hours, we recorded 900 in and 700 out for a positivity of 200 cc. There is no weight on her today. She is drinking Ensure, but she has no appetite for regular food. EYES: Pupils equal and reactive. Extraocular muscles intact. Sclerae anicteric. MOUTH: Shows mucous membranes to be pink and moist. Lips and commissures without lesions or thrush. NECK: Supple. No jugular venous distention. No subcutaneous emphysema. Trachea is midline. LUNGS: Diminished on the left side. She has markedly decreased breath sounds on the left side with a dull percussion note. Right side shows scattered rales and rhonchi. Percussion was full to the diaphragm on the left. CARDIAC: Exam without murmurs, clicks, rubs or gallops. I cannot feel her PMI. S1, S2 are normal. ABDOMEN: Tympanitic, slightly distended. She is more tender today in her mid abdomen than she was before with deep palpation. I do not feel hepatomegaly through her distention. There is no CVA tenderness. EXTREMITIES: Maybe trace pretibial edema, no calf tenderness. No differential swelling of upper extremities. SKIN: Warm, dry and perfused, without cyanosis or mottling, including that of the nailbeds and knees. NEUROLOGIC: Shows II-XII intact. Normal gross motor, gross sensation intact. Gait is not tested. PSYCHIATRIC: Shows her to be awake and alert, with a depressed but anxious mood and affect. LABORATORY DATA: White count today 4.7 with hemoglobin and hematocrit 10.3 and 34.4 respectively, platelet count 199,000. Differential shows 67% neutrophils, 11% bands, 11% lymphocytes, 5% monocytes, 3% metamyelocytes and 1% myelocytes. There are no toxic granulations reported. Chemistries today show sodium 144, potassium 5.3, BUN and creatinine 59 and 0.8; she is looking intravascularly dry. IMAGING STUDIES: Her chest x-ray today showed her chest filling up with fluid again. She has right main stem bronchus cut-off sign secondary to a tumor. It looks as though she is getting more and more atelectasis in the left lower lobe. She evidently spoke to hospice over the phone yesterday and is considering that. I am going to have hospice come see her [id number] tomorrow. IMPRESSION: 1. Metastatic carcinoma; probably from pancreas. 2. Most likely malignant pleural effusion; initially drained with a pigtail catheter - recurring. 3. Multiple liver metastases. 4. Mediastinal mass and right lung mass; probably metastatic. 5. Left lower lobe subpleural nodule; probably metastatic 6. Anxiety and depression. 7. Gastroesophageal reflux disease. 8. Protein calorie malnutrition. PLAN/DISCUSSION: As noted above, I will ask hospice to see her tomorrow and will also get patient/family services involved for help to get her affairs in order. While pathology is not back, it is highly doubtful that this is anything but metastatic carcinoma. Because of her weakened state and poor functional status, I highly doubt that oncology is going to offer her chemotherapy. There is really no room for radiation therapy with diffuse metastasis. I will add sublingual Roxanol to her pain control. She is already on a Fentanyl patch and that does not seem to be helping. We will give her Roxanol every 2 hours as needed and up it as needed. Evidently Dr. De Luna, her hospitalist, has talked to her about comfort care and she does not want that quite yet. She does realize that she is going downhill. She was the one that broached the conversation of getting her affairs in order and that she needs help doing that. The upside is that she is realistic about her situation. TATO
--- NOTE | 2020-07-10 09:56 | RO ---
DATE OF OPERATION: 07/06/2020 PREOPERATIVE DIAGNOSIS: Right pleural effusion, probably metastatic. POSTOPERATIVE DIAGNOSIS: Right pleural effusion, probably metastatic. SURGEON: Dante Stephenson MD QA AUTOMATION ENGINEER: PROCEDURE: Insertion of right lateral chest tube. ANESTHESIA: DESCRIPTION OF PROCEDURE: Under satisfactory moderate sedation achieved with 3 mg of Versed, the patient was prepped and draped in the usual sterile fashion. The skin and subcutaneous tissue, muscle and pleura were infiltrated in the approximate 6th intercostal space. Incision was made and a tunnel was created in the chest without difficulty. A #24 chest tube was placed without difficulty. It was secured with to the chest wall with #2 Tevdek suture. It drained 1300 cc of serosanguineous fluid. The tube was connected to the Pleur-evac. The patient tolerated the procedure well and chest x-ray is pending. [facility]
--- NOTE | 2020-07-10 09:58 | REP ---
ULTRASOUND-GUIDED LIVER BIOPSY The procedure as performed under the direct supervision of Dr. Larkin. The patient has a history of multiple heterogeneous masses in the liver seen on a previous CT scan dated 07/06/2020. The risks and benefits of the procedure were explained to the patient and informed consent was obtained. A liver mass in the left lobe of the liver was localized using ultrasound guidance. The skin was prepped and draped in a sterile fashion. 1% Lidocaine was used as a local anesthetic. Using ultrasound guidance, a 19-20 coaxial needle biopsy system was inserted and advanced into the mass. Five core biopsy samples were obtained and sent to the lab. The patient tolerated the procedure well and there were no immediate complications. After the appropriate amount of monitored convalescence, the patient was discharged from the department. TATO
[2020-07-10 12:00] VITALS: BP 130/73
[2020-07-10] MEDS: PERCOCET 5MG/325MG TAB PO PRN (12:30)
[2020-07-10 13:51] LABS: CALCIUM LEVEL 8.9 MG/DL (8.8-10.2); CREATININE FOR GFR 1.47 MG/DL (0.55-1.30); GLOMERULAR FILTRATION RATE 37.3 (>39)
[2020-07-10 13:53] LABS: POTASSIUM SERUM 6.2 MEQ/L (3.5-5.1)
[2020-07-10] MEDS ORDERED: CALCIUM GLUCONATE 1,000 MG in D5W MINI-BAG PLUS 100 ML IV ONE (14:15)
[2020-07-10] MEDS: NS 1,000 ML IV SCH ×2 (14:22→22:04)
[2020-07-10 16:00] VITALS: BP 122/68
[2020-07-10] MEDS ORDERED: NS 500 ML IV ONE (19:00)
[2020-07-10 20:00] VITALS: BP 107/60
--- NOTE | 2020-07-10 20:03 | IPNPDOC ---
Subjective Date Seen The patient was seen on 07/10/20. Subjective Chief Complaint/HPI Ms. Cash is a 69 year old female here is dyspnea found to have exudative pleural effusion and multiple abdominal masses. This morning, she denies any fever/chills, chest pain, abdominal pain, or diarrhea. She was feeling thirsty Constitutional: Denies: Chills, Fever Cardiovascular: Denies: Chest Pain Gastrointestinal: Denies: Abdominal Pain Genitourinary: Denies: Dysuria Endocrine: Reports: Polydipsia Objective Physical Examination General Exam: Positive: Alert, Cooperative, No Acute Distress Eye Exam: Positive: EOMI; Negative: Sclera icteric ENT Exam: Positive: Atraumatic Neck Exam: Positive: Supple Chest Exam: Positive: Clear to auscultation Heart Exam: Positive: Rate Normal, Tachycardic Abdomen Exam: Positive: Normal bowel sounds Extremity Exam: Negative: Edema Neuro Exam: Positive: Normal Gait, Normal Speech Psych Exam: Positive: Anxiety Assessment /Plan Assessment Ms. Cash is a 69 year old female here with exudative pleural effusions and multiple masses in the abdomen. Oncology is following. Liver biopsy is pending. Due to poor prognosis and widespread metastatic disease, introduced the idea of hospice. Will reach out to [facility] for hospice/palliative care Plan/VTE VTE Prophylaxis Ordered?: Yes Plan 1. Right pleural effusion - Exudative in nature - Chest tube removed - Thoracic surgery following, recommendations appreciated 2. Masses in the abdomen - CT of the abd/pelvis demonstrated multiple masses in the liver, pancreas, and kidney - Pending liver biopsy results - Oncology consulted, recommendations appreciated 3. Right arm pain - Had a fall a few weeks ago, declined further imaging 4. Diffuse pain. May be secondary to widespread metastatic cancer. Pain regimen includes liquid morphine, fentanyl, lidocaine patch, Percocet, [place] - Will D/C ketorolac 5. Anxiety. Secondary to her widespread disease and thoughts of mortality. Ativan for anxiety 6. GERD - Continue pantoprazole 7. RAMOS - Will give IV fluid and monitor 8. Hyperkalemia - Secondary to RAMOS, will hydrate and use kaylexalate. 9. DVT ppx - subq heparin. VS, I&O, 24H, Fishbone Vital Signs/I&O Vital Signs Date Time Temp Pulse Resp B/P (MAP) Pulse Ox O2 Delivery O2 Flow Rate FiO2 07/10/20 16:00 96.1 99 20 122/68 (86) 97 Nasal Cannula 2.0 I&O- Last 24 Hours up to 6 AM 07/10/20 06:00 Intake Total 596 ml Output Total 300 ml Balance 296 ml Laboratory Data 24H LABS Laboratory Tests 2 07/10/20 04:08: Immature Granulocyte % (Auto) , Neutrophils (%) (Auto) , Nucleated Red Blood Cells % (auto) 11.1H, Neutrophils 69H, Band Neutrophils 3, Lymphocytes (Manual) 15L, Monocytes (Manual) 4, Eosinophils (Manual) 1, Metamyelocytes 2H, Myelocytes 6H, Hypochromasia 1+, Basophilic Stippling 1+, Anisocytosis 2+, Toxic Granulation 1+, Platelet Estimate NORMAL, Anion Gap 2L, Glomerular Filtration Rate 43.4, Calcium Level 9.2 07/10/20 12:43: Anion Gap 3L, Glomerular Filtration Rate 37.3L, Calcium Level 8.9 CBC/BMP Laboratory Tests 07/10/20 04:08 07/10/20 12:43 Microbiology Microbiology 07/06/20 Acid Fast Stain, Received Pending 07/06/20 Mycobacterial Culture, Received Pending 07/06/20 Fungal Smear, Received Pending 07/06/20 Fungal Culture, Received Pending 07/06/20 Gram Stain - Final, Complete 07/06/20 Anaerobic Culture - Final, Complete 07/06/20 Body Fluid Culture - Final, Complete 07/06/20 Blood Culture - Preliminary, Resulted No Growth after 72 hours. All specime... 07/06/20 Blood Culture - Preliminary, Resulted No Growth after 72 hours. All specime... JAMAL STEELE DO Jul 10, 2020 20:03
[2020-07-10 20:38] LABS: CALCIUM LEVEL 8.9 MG/DL (8.8-10.2); CREATININE FOR GFR 1.45 MG/DL (0.55-1.30); GLOMERULAR FILTRATION RATE 37.9 (>39); POTASSIUM SERUM 6.8 MEQ/L (3.5-5.1)
[2020-07-10] MEDS: PATIROMER SORBITEX CALCIUM 8.4 GM POWDER PACKET (VELTASSA) PO ONE ×2 (21:00→22:04)
[2020-07-10] MEDS: **NOTE PATIENT COMMENT** MISC XX SCH (21:33)
[2020-07-11] VITALS: BP 103/51
[2020-07-11] MEDS: PERCOCET 5MG/325MG TAB PO PRN (01:15)
[2020-07-11] MEDS ORDERED: LORazepam 1 MG TAB PO PRN (01:45)
[2020-07-11] MEDS: LEVALBUTEROL 1.25 MG/0.5 ML CONCENTRATE NEB NEB SCH (02:00)
[2020-07-11] MEDS: SLF 3 ML SYR IV SCH (05:11)
--- NOTE | 2020-07-11 20:07 | DS.PDOC ---
Discharge Summary General Date of Admission Jul 06, 2020 at 14:11 Date of Discharge 07/11/2020 Attending Physician: JAMAL STEELE DO Specialist/Consultants [facility]olve Cardiothoracic surgery, Dr. Stephenson Oncology surgery, Dr. Diaz Discharge Summary PROCEDURES PERFORMED DURING STAY: Chest tube insertion, FNA liver biopsy ADMITTING DIAGNOSES: 1. Right pleural effusion. 2. Pancreatic mass. 3. Hyperlipidemia. 4. Anxiety and depression. DISCHARGE DIAGNOSES: 1. Metastatic small cell carcinoma, unknown primary. Possible metastases to kidney, bowel, adrenal, bone, liver and pancreas 2. Severe protein calorie malnutrition. 3. Exudative right pleural effusion. 4. Hyperkalemia secondary to acute kidney injury 5. Acute kidney injury. 6. Pancreatic mass. 7. Hyperlipidemia. 8. Anxiety and depression. COMPLICATIONS/CHIEF COMPLAINT: Pleural Effusion. HISTORY OF PRESENT ILLNESS: Miss Cash is a 69-year-old female who presented to [facility] for shortness of breath, difficulty with gait, weakness and malaise. She is also noted to have a 40 pound unintentional weight loss. During evaluation in the ED she was found to have a large right pleural effu junior. Her white blood cells were within normal, so we did not think that this is an infectious process. HOSPITAL COURSE: During her hospitalization, Cardiothoracic surgery placed a right chest tube on 07/06/2020. Fluid analysis suggested exudative process. Pleural fluid culture and anaerobic culture did not grow any organisms. Pathology of the pleural fluid was positive for metastatic small cell carcinoma. This is consistent with a liver biopsy on 07/10/2020, which also demonstrated metastatic small cell carcinoma. During her hospitalization, we consulted oncology. At that time, pathology results have not returned. During the consultation, oncologist suggested that home with hospice would be a reasonable route due to the poor prognosis. Patient lives alone, did not have good support at home. She would need a hospice facility. I spoke to her about NEUROSURGICAL NURSE option, but she was still processing her prognosis. She didn't realize how severe her disease was and it was unexpected to her. She knew that she was going to , but was afraid of going to NEUROSURGICAL NURSE. On Friday, social staff worker, reached out to her about hospice. At that time, she wanted to think more. During this time, her oral intake was poor. She started developed acute kidney injury and hyperkalemia. She was resistant to therapy for hyperkalemia. On Friday evening, they tried to give her Kayexalate for hyperkalemia, but then she decided she wanted to be NEUROSURGICAL NURSE. She is then made NEUROSURGICAL NURSE. Then on 07/11/2020 at 5:35 AM she was pronounced . Most of her family lived in [place] and she had not been in touch with them. Locating family as a challenge since she had not had a close relationship with them. Per [facility] note, Mr. Barajas had reached out to the nursing station this morning and provided his contact number. Mr. Barajas reported that she had no connections to her family and that she reached out to him to handle her affairs. He was planning to meet with her today to sign POA, but she before meeting him. DISPOSITION: 20 . Total time spent on summary 35 minutes Vital Signs/I&Os Vital Signs Date Time Temp Pulse Resp B/P (MAP) Pulse Ox O2 Delivery O2 Flow Rate FiO2 07/11/20 01:45 28 07/11/20 00:00 95.8 96 103/51 (68) 96 Nasal Cannula 3.0 I&O- Last 24 Hours up to 6 AM 07/11/20 06:00 Intake Total 1223 ml Output Total 200 ml Balance 1023 ml Laboratory Data Labs 24H Laboratory Tests 2 07/10/20 19:54: Anion Gap 1L, Glomerular Filtration Rate 37.9L, Calcium Level 8.9 CBC/BMP Laboratory Tests 07/10/20 19:54 Microbiology Microbiology 07/06/20 Acid Fast Stain, Received Pending 07/06/20 Mycobacterial Culture, Received Pending 07/06/20 Fungal Smear, Received Pending 07/06/20 Fungal Culture, Received Pending 07/06/20 Gram Stain - Final, Complete 07/06/20 Anaerobic Culture - Final, Complete 07/06/20 Body Fluid Culture - Final, Complete 07/06/20 Blood Culture - Final, Complete NO GROWTH AFTER 5 DAYS 07/06/20 Blood Culture - Final, Complete NO GROWTH AFTER 5 DAYS Discharge Medications Scheduled Amitriptyline HCl (Amitriptyline HCl) 10 Mg Tablet, 10 MG PO QHS, (Reported) [facility]CEIVES FROM [facility] PER PT, CAN'T VERIFY Atorvastatin Calcium (Atorvastatin Calcium) 20 Mg Tab, 20 MG PO DAILY, (Reported) Ergocalciferol (Vitamin D2) (Vitamin D2) 50,000 Units Cap, 50,000 UNITS PO QWEEK, (Reported) Umeclidinium Brm/Vilanterol Tr (Anoro Ellipta 62.5-25 Mcg INH) 1 Each Blst.w.dev, 1 PUFF INH DAILY, (Reported) Scheduled PRN Lorazepam (Ativan) 1 Mg Tablet, 1 MG PO QID PRN for ANXIETY, (Reported) RECEIVES FROM [facility] PER PT, CAN'T VERIFY Allergies Coded Allergies: bee venom protein (honey bee) (Verified Allergy, Intermediate, HIVES, 07/06/20) JAMAL STEELE DO Jul 11, 2020 20:07
--- NOTE | 2020-07-11 20:22 | ECGEPIP ---
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
--- NOTE | 2020-07-21 09:46 | REP ---
HISTORY: Pleural effusion. COMPARISON: 07/08/2020. FINDINGS: In the interval since the prior study of 07/07/2020, the right chest tube has been removed. The right pleural effusion has reaccumulated and the right hemithorax is almost completely opacified. There is some volume loss in the right hemithorax as well with shift in the mediastinum to the right. There are scattered pleural air bubbles in the right mid chest and an air fluid level is seen superiorly. The left lung shows some mild interstitial fibrosis and there is slight blunting of the left pleural angles indicating a small amount of left pleural fluid. IMPRESSION: Atelectasis and pleural effusion right hemithorax increased in extent. Pleural air fluid levels noted. MTDD
== END 2020-07-11 06:32 | disposition expired | DRG 843 ==
LOC: EDBD 10:10 → M ED 10:10 → M ED INP 14:11 → ENRESERV 14:17 → M PCU 14:42
PROVIDERS: ADMIT Thoracic Surgery (Cardiothoracic Vascular Surgery); ATTEND Internal Medicine
DX: C80.1 Malignant (primary) neoplasm, unspecified (principal); E43 Unspecified severe protein-calorie malnutrition; N17.9 Acute kidney failure, unspecified; J98.11 Atelectasis; C78.00 Secondary malignant neoplasm of unspecified lung; J91.0 Malignant pleural effusion; C79.70 Secondary malignant neoplasm of unspecified adrenal gland; C79.51 Secondary malignant neoplasm of bone; C77.9 Secondary and unspecified malignant neoplasm of lymph node, unspecified; C78.7 Secondary malignant neoplasm of liver and intrahepatic bile duct; C78.6 Secondary malignant neoplasm of retroperitoneum and peritoneum; E87.5 Hyperkalemia; C78.89 Secondary malignant neoplasm of other digestive organs